=== PATIENT | female | born 1945 ===

== ENCOUNTER 2024-08-21 01:28 | Inpatient (IN) | payer OTHER, SELFPAY ==
--- NOTE | ~2024-08-21 | FL_ITS ---
EXAMINATION: MODIFIED BARIUM SWALLOW CLINICAL INFORMATION: Dysphagia COMPARISON: None TECHNIQUE: Modified barium swallow was performed under lateral fluoroscopy with patient in standing position. Barium mixed with solids and liquids of different consistencies was administered by the speech pathologist. Examination was recorded in the fluoroscopy suite. FINDINGS: Patient was unable to be positioned accordingly to visualize the hypopharynx, therefore, the procedure was terminated per request of the speech pathologist. FLUOROSCOPY TIME: 44 seconds Number of Spot Images: N/A DOSE AREA PRODUCT: 389.7 uGy-m2 (microgray-meter squared) FL/FL Modified Barium Swallow IMPRESSION: 1. Limited examination due to inability to visualize the hypopharynx. The procedure was terminated per request of the speech pathologist. Refer to the speech therapy report for further clarification This procedure was performed by Rusty Brennan PA-C, and supervised by Dr. Keane Electronically signed by: Jerry Keane MD 08/26/2024 08:36 AM [facility] [place]
[2024-08-21 02:02] VITALS: BP 143/69; PULSE 63; RESP 18; TEMP 36.6; O2SAT 92
--- NOTE | 2024-08-21 03:00 | PC.ADMIT ---
Addendum entered by Ebenezer Rios RN 08/21/24 03:18: incontinent of bowel and balder, and fall risk Original Note: patient is a hospital [place] hospital [place] [facility] [place] arrived on unit 08/21/24 at 0140 via stretcher and was transferred into bed. ambulance staff reported she was bed bound. patient has vague SI without a plan. Psych Diagnosis: Schizophrenia NOS, Bipolar NOS, Medical: Obesity, GERD, CKD, she had barricaded herself in her room at [facility], was aggressive, had SI, and was not medication compliant, on admission patient was resistive to admission process and responded with blank stair when asked to sign papers, she has a left side mastectomy, ,
[2024-08-21 08:00] VITALS: BP 140/76; PULSE 62; RESP 18; TEMP 36; O2SAT 94
--- NOTE | 2024-08-21 08:12 | P.HPPS_ITS ---
HPI Date of Service: 08/21/24 Chief Complaint: unspecified schizophrenia, bipolar disorder Sources of Information: patient interviewed, chart reviewed and crisis/core team assessment reviewed HPI Subjective Notes: Section 12B Narrative: 78-year-old female direct admission through [facility], where they were evaluated due to paranoia, aggression at [facility] in [place]. Paperwork from their has a diagnosis of schizophrenia. Noted from transfer information, patient had barricaded self in room, posturing towards staff, refusing medications, making suicidal statements and scratching herself. Lab work unremarkable, tox screen negative. QTC 465. refused to sign a CV and admitted on a Section 12. Today with short story writer, very minimal engagement. In bed. Hospital clothing. Self- care was poor. She was very guarded, paranoid and seemed internally preoccupied. Would not engage in interview. Later in the day as per nursing was out of bed and eating and also asked for Tylenol. Med reconciliation completed. Past Psychiatric History: per [facility] documentation, reported diagnosis of schizophrenia. Otherwise no information available and patient not engaging in interview Medical Evaluation Reviewed: Hospitalist Margaritaal Pending [facility] Social History: [facility] in [place] Substance History: unknown. Tox screen was negative Trauma History: unknown Diagnostics Vital Signs (24Hr): Vital Signs - 24 hr 08/21/24 02:02 Temperature 97.8 F Pulse Rate 63 Respiratory Rate 18 Blood Pressure 143/69 H Pulse Oximetry 92 Oxygen Delivery Method Room Air Meds/Allergies Meds Home Medications ?Medication ?Instructions ?Recorded ?Confirmed ?Type aluminum-mag hydroxide-simethicone 30 ml PO BID PRN GERD 08/21/24 08/21/24 History 200 mg-200 mg-20 mg/5 mL oral susp artificial tears solution eye drops 1 drp ophthalmic (eye) TID 08/21/24 08/21/24 History benztropine 0.5 mg tablet 0.5 mg PO BID DYSKINESIA 08/21/24 08/21/24 History bisacodyl 10 mg rectal suppository 10 mg [place] DAILY PRN Constipation 08/21/24 08/21/24 History cholecalciferol (vitamin D3) 25 25 mcg PO DAILY 08/21/24 08/21/24 History mcg (1,000 unit) tablet clopidogrel 75 mg tablet 75 mg PO DAILY 08/21/24 08/21/24 History cyclobenzaprine 5 mg tablet 5 mg PO TID PRN DYSTONIA 08/21/24 08/21/24 History deutetrabenazine 36 mg 36 mg PO BEDTIME 08/21/24 08/21/24 History tablet,extended release 24 hr dextromethorphan-guaifenesin 10 10 ml PO Q6H PRN Cough 08/21/24 08/21/24 History mg-100 mg/5 mL oral liquid divalproex 125 mg capsule,delayed 500 mg PO BID 08/21/24 08/21/24 History release sprinkle (Depakote Sprinkles) docusate sodium 100 mg capsule 100 mg PO BID 08/21/24 08/21/24 History ezetimibe 10 mg tablet 10 mg PO BEDTIME 08/21/24 08/21/24 History isosorbide mononitrate 60 mg 60 mg PO QAM 08/21/24 08/21/24 History tablet,extended release 24 hr lactulose 10 gram/15 mL oral 10 g PO BID PRN Constipation 08/21/24 08/21/24 History solution levothyroxine 112 mcg tablet 112 mcg PO DAILY@0630 08/21/24 08/21/24 History lorazepam 0.5 mg tablet 0.5 mg PO BID Anxiety 08/21/24 08/21/24 History lorazepam 0.5 mg tablet 0.5 mg PO Q6H PRN Anxiety 08/21/24 08/21/24 History magnesium hydroxide 400 mg/5 mL 30 ml PO DAILY PRN Constipation 08/21/24 08/21/24 History oral suspension (Milk of Magnesia) melatonin 3 mg tablet 6 mg PO BEDTIME 08/21/24 08/21/24 History nitroglycerin 0.4 mg sublingual 0.4 mg sublingual Q5M PRN Chest 08/21/24 08/21/24 History tablet Pain oxybutynin chloride 5 mg tablet 5 mg PO DAILY 08/21/24 08/21/24 History paliperidone palmitate 156 mg/mL 156 mg IM Q28D 08/21/24 08/21/24 History intramuscular syringe (Invega Sustenna) pantoprazole 40 mg granules 40 mg PO BEDTIME 08/21/24 08/21/24 History delayed-release for susp in packet polyethylene glycol 3350 17 gram 17 g PO DAILY 08/21/24 08/21/24 History oral powder packet (Miralax) pregabalin 75 mg capsule 75 mg PO BID 08/21/24 08/21/24 History sennosides 8.6 mg tablet (senna) 17.2 mg PO BEDTIME 08/21/24 08/21/24 History Allergies Allergies Allergy/AdvReac Type Severity Reaction Status Date / Time desonide Allergy Intermediate Unknown Verified 08/21/24 01:32 hydrocortisone Allergy Intermediate Unknown Verified 08/21/24 01:34 metoprolol Allergy Intermediate Unknown Verified 08/21/24 01:34 minocycline Allergy Intermediate Unknown Verified 08/21/24 01:35 niacin Allergy Intermediate Unknown Verified 08/21/24 01:35 NSAIDS (Non-Steroidal Allergy Intermediate Unknown Verified 08/21/24 01:33 Anti-Inflamma tetracycline Allergy Intermediate Unknown Verified 08/21/24 01:36 venlafaxine Allergy Intermediate Unknown Verified 08/21/24 01:36 latex Allergy Unknown Verified 08/21/24 01:37 gentamicin AdvReac Severe Unknown Verified 08/21/24 01:33 Mental Status Exam Mental Status Exam Narrative: Very minimal engagement. In bed. Hospital clothing. Self-care was poor. She was very guarded, paranoid and seemed internally preoccupied. Would not engage in interview. Assessment & Plan Assessment & Plan (1) Schizophrenia: Status: Acute Code(s): F20.9 - Schizophrenia, unspecified Plan 78-year-old female, direct admission from [facility], having been evaluated for paranoia, barricading self in room, posturing at staff, suicidal thoughts in the context of medication non adherence. Is a resident admission care [facility]. Paperwork there has a diagnosis of schizophrenia. Psychiatric history is unclear. Lab workup and tox screen unremarkable. Does appear very paranoid and internally preoccupied. Med reconciliation completed- Is on Depakote, Ativan and deutetrabenazine, but no scheduled antipsychotics. Overall will observe on unit, before making any decisions around and psychotic medication, Otherwise and restarted home for/ [facility] med list Patient educated on: other ( unable to engage) Informed Consent: further education needed Reason for continued inpatient stay Substantial Risk for: harm to others and inability to function Statement Statement: I have reviewed the history and physical and performed a pertinent examination on my patient. No changes have occurred unless specified. If the History and Physical was not performed prior to admission, the Hospitalist's service will be consulted for completing the admission ph ysical. Time Spent With Patient Time: Total time managing care of this patient today ____ minutes.
[2024-08-21 14:28] VITALS: BP 140/76
[2024-08-21] MEDS: Isosorbide Mononitrate 60 MG TAB.ER.24H PO (14:28)
[2024-08-21] MEDS: LORazepam 0.5 MG TABLET PO ×2 (14:28→20:15)
[2024-08-21] MEDS: polyethylene glycoL 3350 17 GM POWD.PACK PO (14:28)
[2024-08-21] MEDS: Cholecalciferol (Vitamin D3) 25 MCG TABLET PO (14:29)
[2024-08-21] MEDS: Docusate Sodium 100 MG CAPSULE PO ×2 (14:29→20:16)
[2024-08-21] MEDS: Divalproex Sodium Sprinkles 125 MG CAP.DR.SPR 500 MG PO ×2 (14:29→20:14)
[2024-08-21] MEDS: Clopidogrel Bisulfate 75 MG TABLET PO (14:30)
[2024-08-21] MEDS: Acetaminophen 325 MG TABLET 650 MG PO (14:40)
[2024-08-21] MEDS: Artificial Tears 15 ML DROPS 1 DROP EYE-BOTH ×2 (15:37→20:55)
[2024-08-21] MEDS: Pregabalin 75 MG CAPSULE PO ×2 (15:38→20:15)
[2024-08-21 20:00] VITALS: BP 104/60; PULSE 72; TEMP 36.8; O2SAT 96
[2024-08-21] MEDS: Sennosides 8.6 MG TABLET 17.2 MG PO (20:14)
[2024-08-21] MEDS: Melatonin 3 MG TABLET 6 MG PO (20:14)
[2024-08-21] MEDS: Ezetimibe 10 MG TABLET PO (20:15)
[2024-08-21] MEDS: Benztropine Mesylate 0.5 MG TABLET PO (20:15)
[2024-08-22] MEDS: Levothyroxine Sodium 112 MCG TABLET PO (05:37)
[2024-08-22] MEDS: Pantoprazole Sodium 20 MG TABLET.DR 40 MG PO (06:06)
[2024-08-22 09:32] VITALS: BP 130/79; PULSE 54; RESP 18; TEMP 36.6; O2SAT 95
[2024-08-22] MEDS: Divalproex Sodium Sprinkles 125 MG CAP.DR.SPR 500 MG PO (09:34)
[2024-08-22] MEDS: Artificial Tears 15 ML DROPS 1 DROP EYE-BOTH ×2 (09:34→15:02)
[2024-08-22] MEDS: Cholecalciferol (Vitamin D3) 25 MCG TABLET PO (09:35)
[2024-08-22] MEDS: Pregabalin 75 MG CAPSULE PO (09:36)
[2024-08-22] MEDS: Docusate Sodium 100 MG CAPSULE PO (09:36)
[2024-08-22] MEDS: LORazepam 0.5 MG TABLET PO (09:36)
[2024-08-22] MEDS: Isosorbide Mononitrate 60 MG TAB.ER.24H PO (09:36)
[2024-08-22] MEDS: Clopidogrel Bisulfate 75 MG TABLET PO (09:36)
[2024-08-22] MEDS: oxyBUTYnin chloride 5 MG TABLET G-TUBE (09:37)
[2024-08-22] MEDS: Benztropine Mesylate 0.5 MG TABLET PO (09:38)
[2024-08-22] MEDS: polyethylene glycoL 3350 17 GM POWD.PACK PO (09:38)
--- NOTE | 2024-08-22 11:03 | MHC.SL.SWA ---
Speech Pathologist Impression: Moderate to significant oral phase dysphagia d/t broken teeth, nasal regurgitation. Pharyngeal phase WFL for soft, homogenous consistencies. Risk of Aspiration Due to: Poor PO Intake Complex presentation of complaints regarding PO intake Dysphasia Diet Status: Liquid Consistency and Strategies for Safe Swallow: Liquid Intake Recommendation: Thin Liquid Intake Strategies: Small Sips Solid Food Consistency: Dietary Recommendations: Pureed (NDD1) Additional Modifications to Solid Foods: 1:1 supervision during PO intake, meds whole with cranberry juice Oral Medication Intake: Whole with Liquid Please contact the pharmacy regarding appropriate crushable or liquid drug formulations that are available whenever modified delivery is recommended. Compensatory Strategies and Precautions to be Taken for Safe Swallow: Sitting Upright (90 deg) Small Bites and Sips Alternate Liquids/Solids Rate of Ingestion Change Supervision While Eating and Drinking for Safe Swallow: Total Supervision (1:1) Foods to Avoid: Swallowing Recommended Treatments: Compens. Strategy Educat., MBSS inpatient to visualize physiological function of swallow mechanism. Recommendation for Speech: Inpatient Speech Therapy Modified Barium Swallow Study - Inpatient Comment: Recc smooth, homogenous consistencies (purees and thins), further assessment of oral and pharyngeal mechanism. Dental decay and broken teeth negatively impact oral phase efficiency. Pharyngeal swallow WFL as observed today, recc MBSS to visualize mechanism. Inpatient [facility] tx, referrals to ENT, Grinding And Spraying Supervisor, Dentist and [facility] considered necessary d/t pt reports of food regurgitation into nasal cavity/postnasal drip, pressure in the ears when eating, pain with chewing, and increased eye secretions s/p eating. Frequency/Duration: Daily M-F Date Range for Service Req: Timeline to reassess: Senior Auditor Clinican/Clinical Fellow: No Supervisory Statement: I have reviewed and agree with the student/clinical fellow's documentation: N/A Speech Language Pathologist: Clary Lopez M.S., CCC-[facility]
--- NOTE | 2024-08-22 11:13 | P.PNPSI_ITS ---
Subjective Subjective Date of Service: 08/22/24 Reason For Visit: unspecified schizophrenia, bipolar disorder Subjective Notes: Iverson Warning and Section 12B Interim History: Met with patient. Discussed with Nursing. And of her room yesterday and engaging more as per nursing staff. Eating okay. With sign writer hand was observed in day area attending group. Did appear guarded but was also engaging and participating. With sign writer hand reports at [facility] she has been feeling more depressed with suicidal thoughts but no plans. Reports that she is 78 years old and needs lots of help and therefore feels that she is at the end of her life and there is no point in living. Also reported feeling scared and paranoid. Was able to recall not speaking with sign writer hand yesterday and stated she was scared because it was a new environment. Denied inpatient psychiatric history. Was unsure around medications. Denied history of suicide attempts. Denies any history of hallucinations. No cognitive impairment evident. Was able to talk about the Super Bowl and half time show and reports that she prefers older music and artists, but of the newer generation she likes [employer]. sleep energy and appetite fair. Does endorse constipation which has been a longstanding is amaury. Was open to some changes being made regarding constipation but was also ambivalent. Medication Compliance: Yes Side effects from medications: No Attending Groups: Yes Review of Systems Acute medical concerns: No Review of Systems Review of Systems Constipation Mental Status Exam Mental Status Exam Narrative: Pleasant. Engaged. Hospital clothing. Self-care is still limited. No cognitive impairment noted. Aware of location month and day and year without difficulty. Articulated preference is around music and the Superbowl have time show. Does endorse feeling depressed with suicidal thoughts. No plans. Does endorse feeling scared and paranoid at times, but is adjusting to new envi ronment and feeling safe. No HI. No hallucinations. Insight and judgment fair Diagnostics Vital Signs (24Hr): Vital Signs - 24 hr 08/21/24 14:28 08/21/24 20:00 08/22/24 09:32 Temperature 98.2 F 97.8 F Pulse Rate 72 54 Respiratory Rate 18 Blood Pressure 140/76 H 104/60 130/79 Pulse Oximetry 96 95 Oxygen Delivery Method Room Air Room Air Medications Medications Current Medications Acetaminophen (Acetaminophen 325 Mg Tablet) 650 mg PO Q6H PRN PRN Reason: Headache/Pain Mild Scale (1-3) Last Admin: 08/21/24 14:40 Dose: 650 mg Al Hydroxide/Mg Hydroxide (Magnesium Hydrox/Alum Hydrox 30 Ml Oral.Susp) 30 ml PO BID PRN PRN Reason: GERD Artificial Tears (Artificial Tears 15 Ml Drops) 1 drop EYE-BOTH TID [facility] Last Admin: 08/22/24 09:34 Dose: 1 drop Benztropine Mesylate (Benztropine Mesylate 0.5 Mg Tablet) 0.5 mg PO BID [facility] Last Admin: 08/22/24 09:38 Dose: 0.5 mg Bisacodyl (Bisacodyl 10 Mg Supp.Rect) 10 mg [place] DAILY PRN PRN Reason: Mild Constipation Clopidogrel Bisulfate (Clopidogrel Bisulfate 75 Mg Tablet) 75 mg PO DAILY [facility] Last Admin: 08/22/24 09:36 Dose: 75 mg Cyclobenzaprine HCl (Cyclobenzaprine Hcl 5 Mg Tablet) 5 mg PO TID PRN PRN Reason: DYSTONIA Divalproex Sodium (Divalproex Sodium Sprinkles 125 Mg ) 500 mg PO BID [facility] Last Admin: 08/22/24 09:34 Dose: 500 mg Docusate Sodium (Docusate Sodium 100 Mg Capsule) 100 mg PO BID [facility] Last Admin: 08/22/24 09:36 Dose: 100 mg Ezetimibe (Ezetimibe 10 Mg Tablet) 10 mg PO BEDTIME [facility] Last Admin: 08/21/24 20:15 Dose: 10 mg Guaifenesin/Dextromethorphan (Guaifenesin Dm 100/10/5 Ml 5 Ml Syrup) 10 ml PO Q6H PRN PRN Reason: Cough Isosorbide Mononitrate (Isosorbide Mononitrate 60 Mg Tab.Er.24h) 60 mg PO DAILY [facility]; Protocol Last Admin: 08/22/24 09:36 Dose: 60 mg Lactulose (Lactulose 20 Gm/30 Ml Solution) 10 gm PO BID PRN PRN Reason: moderate Constipation Levothyroxine Sodium (Levothyroxine Sodium 112 Mcg Tablet) 112 mcg PO DAILY@0600 [facility] Last Admin: 08/22/24 05:37 Dose: 112 mcg Lorazepam (Lorazepam 0.5 Mg Tablet) 0.5 mg PO BID [facility] Last Admin: 08/22/24 09:36 Dose: 0.5 mg Lorazepam (Lorazepam 0.5 Mg Tablet) 0.5 mg PO Q6H PRN PRN Reason: Anxiety Magnesium Hydroxide (Milk Of Magnesia 30 Ml Oral.Susp) 30 ml PO DAILY PRN PRN Reason: Constipation Melatonin (Melatonin 3 Mg Tablet) 6 mg PO BEDTIME [facility] Last Admin: 08/21/24 20:14 Dose: 6 mg Nitroglycerin (Nitroglycerin 0.4 Mg Tab.Subl) 0.4 mg SUBLINGUAL Q5M PRN PRN Reason: Chest Pain Non-Formulary Medication (Deutetrabenazine) 36 mg PO BEDTIME [facility] Olanzapine (Olanzapine 5 Mg Tablet) 5 mg PO TID PRN PRN Reason: agitation Oxybutynin Chloride (Oxybutynin Chloride 5 Mg Tablet) 5 mg G-TUBE DAILY [facility] Last Admin: 08/22/24 09:37 Dose: 5 mg Pantoprazole Sodium (Pantoprazole Sodium 20 Mg Tablet.Dr) 40 mg PO DAILY@0630 [facility] Last Admin: 08/22/24 06:06 Dose: 40 mg Polyethylene Glycol (Polyethylene Glycol 3350 17 Gm Powd.Pack) 17 gm PO DAILY [facility] Last Admin: 08/22/24 09:38 Dose: 17 gm Pregabalin (Pregabalin 75 Mg Capsule) 75 mg PO BID [facility] Last Admin: 08/22/24 09:36 Dose: 75 mg Senna (Sennosides 8.6 Mg Tablet) 17.2 mg PO BEDTIME [facility] Last Admin: 08/21/24 20:14 Dose: 17.2 mg Trazodone HCl (Trazodone Hcl 25 Mg Halftab) 25 mg PO BEDTIME MRX1 PRN PRN Reason: Insomnia Vitamin D (Cholecalciferol (Vitamin D3) 25 Mcg Tablet) 25 mcg PO DAILY [facility] Last Admin: 08/22/24 09:35 Dose: 25 mcg Allergies Allergies Allergy/AdvReac Type Severity Reaction Status Date / Time desonide Allergy Intermediate Unknown Verified 08/21/24 01:32 hydrocortisone Allergy Intermediate Unknown Verified 08/21/24 01:34 metoprolol Allergy Intermediate Unknown Verified 08/21/24 01:34 minocycline Allergy Intermediate Unknown Verified 08/21/24 01:35 niacin Allergy Intermediate Unknown Verified 08/21/24 01:35 NSAIDS (Non-Steroidal Allergy Intermediate Unknown Verified 08/21/24 01:33 Anti-Inflamma tetracycline Allergy Intermediate Unknown Verified 08/21/24 01:36 venlafaxine Allergy Intermediate Unknown Verified 08/21/24 01:36 latex Allergy Unknown Verified 08/21/24 01:37 gentamicin AdvReac Severe Unknown Verified 08/21/24 01:33 Assessment & Plan Assessment & Plan (1) Schizophrenia: Status: Acute Code(s): F20.9 - Schizophrenia, unspecified Plan 78-year-old female, direct admission from [facility], having been evaluated for paranoia, barricading self in room, posturing at staff, suicidal thoughts in the context of medication non adherence. Is a resident admission care [facility]. Paperwork there has a diagnosis of schizophrenia. Psychiatric history is unclear. Lab workup and tox screen unremarkable. Does appear very paranoid and internally preoccupied. Med reconciliation completed- Is on Depakote, Ativan and deutetrabenazine, but no scheduled antipsychotics. Overall will observe on unit, before making any decisions around and psychotic medication, Otherwise and restarted home for/ [facility] med list 08/22/24: No med changes- restarted home medications, and there was report that patient was not adherent with medications at [facility]. Regarding constipation restarted Colace and senna. Reason for continued inpatient stay Substantial Risk for: harm to self Time Spent With Patient Time: Total time managing care of this patient today ____ minutes.
[2024-08-22 11:15] LABS: Glucose, Whole Blood 124 mg/dL (60-115)
--- NOTE | 2024-08-22 15:48 | P.CONHOSP_ITS ---
History of Present Illness Data of Consult Service Date: 08/22/24 Primary Care Provider: Unknown Physician HPI An 78-year-old female from [facility] with a past medical history significant for anxiety, bipolar disorder, borderline personality disorder, chronic kidney disease (CKD), drug-induced subacute dyskinesia, dry mouth, hypothyroidism, suicidal behavior, PTSD, COPD, dementia, dystonia, hyperlipidemia, insomnia, major depressive disorder, schizoaffective disorder, and a history of urinary tract infections (UTIs) [place] [facility] [place] for chronic sadness, increased agitation, and suicidal ideation. Reports also indicate episodes of the patient barricading herself in her room, decreased oral intake, aggressive posturing, and yelling/screaming. Her most recent psychiatric hospitalization was in June 2024. Given her presentation, she was admitted to [facility] for psychiatric management. Patient is seemingly doing better, seem to answer questions appropriately. She has no acute complaint, though she reports no urinary symptoms, a UA was collected on 08/21 and is growing Enterococcus/streptococcus, U[place] [facility] [place]. Review of Systems Review of Systems: Gen: no fever Resp: no sob, no cough CV: no chest, no CANO, no leg edema GI: No n/v, no abd pain Neuro: No confusion PMFSH Social History Household Members: Other Household Members Other:: patient [facility] at [facility] Housing: [facility] Do you presently have visiting nurse or other home services: No Patient Tobacco Use Status: Former Tobacco user Smoked in Last 30 Days: No e-Cigarette/Vaping Use: Never Used Patient Interested in Nicotine Replacement: No Patient Given Instructions on How to Stop Smoking: No Second Hand Smoke Exposure: No Use of substances other than those prescribed or required for medical reasons: No Currently Displaying Signs/Symptoms of Drug Intoxication Withdrawal: No Any prior treatment program specific to substance use: No Have you been hit, kicked, punched, or otherwise hurt by someone within the past year? If so, by whom?: No Do you feel safe in your current relationship?: No Current Relationship Is there a partner from a previous relationship who is making you feel unsafe now?: No Are you made to feel afraid or neglected: No Advance Directives: No Advance Directives Information Provided: Yes Do you have thoughts of harming others: None Do you have a plan to hurt others: No Plan Recently lost weight without trying: No Nutrition Risks: No Nutritional Risk Patient : No : No Poor oral hygiene: No Meds Allergies Allergy/AdvReac Type Severity Reaction Status Date / Time desonide Allergy Intermediate Unknown Verified 08/21/24 01:32 hydrocortisone Allergy Intermediate Unknown Verified 08/21/24 01:34 metoprolol Allergy Intermediate Unknown Verified 08/21/24 01:34 minocycline Allergy Intermediate Unknown Verified 08/21/24 01:35 niacin Allergy Intermediate Unknown Verified 08/21/24 01:35 NSAIDS (Non-Steroidal Allergy Intermediate Unknown Verified 08/21/24 01:33 Anti-Inflamma tetracycline Allergy Intermediate Unknown Verified 08/21/24 01:36 venlafaxine Allergy Intermediate Unknown Verified 08/21/24 01:36 latex Allergy Unknown Verified 08/21/24 01:37 gentamicin AdvReac Severe Unknown Verified 08/21/24 01:33 Active Medications: Current Medications Acetaminophen (Acetaminophen 325 Mg Tablet) 650 mg PO Q6H PRN PRN Reason: Headache/Pain Mild Scale (1-3) Last Admin: 08/21/24 14:40 Dose: 650 mg Al Hydroxide/Mg Hydroxide (Magnesium Hydrox/Alum Hydrox 30 Ml Oral.Susp) 30 ml PO BID PRN PRN Reason: GERD Artificial Tears (Artificial Tears 15 Ml Drops) 1 drop EYE-BOTH TID [facility] Last Admin: 08/22/24 15:02 Dose: 1 drop Benztropine Mesylate (Benztropine Mesylate 0.5 Mg Tablet) 0.5 mg PO BID [facility] Last Admin: 08/22/24 09:38 Dose: 0.5 mg Bisacodyl (Bisacodyl 10 Mg Supp.Rect) 10 mg [place] DAILY PRN PRN Reason: Mild Constipation Clopidogrel Bisulfate (Clopidogrel Bisulfate 75 Mg Tablet) 75 mg PO DAILY [facility] Last Admin: 08/22/24 09:36 Dose: 75 mg Cyclobenzaprine HCl (Cyclobenzaprine Hcl 5 Mg Tablet) 5 mg PO TID PRN PRN Reason: DYSTONIA Divalproex Sodium (Divalproex Sodium Sprinkles 125 Mg Cap.DrAltagraciaSpr) 500 mg PO BID [facility] Last Admin: 08/22/24 09:34 Dose: 500 mg Docusate Sodium (Docusate Sodium 100 Mg Capsule) 100 mg PO BID [facility] Last Admin: 08/22/24 09:36 Dose: 100 mg Ezetimibe (Ezetimibe 10 Mg Tablet) 10 mg PO BEDTIME [facility] Last Admin: 08/21/24 20:15 Dose: 10 mg Guaifenesin/Dextromethorphan (Guaifenesin Dm 100/10/5 Ml 5 Ml Syrup) 10 ml PO Q6H PRN PRN Reason: Cough Isosorbide Mononitrate (Isosorbide Mononitrate 60 Mg Tab.Er.24h) 60 mg PO DAILY [facility]; Protocol Last Admin: 08/22/24 09:36 Dose: 60 mg Lactulose (Lactulose 20 Gm/30 Ml Solution) 10 gm PO BID PRN PRN Reason: moderate Constipation Levothyroxine Sodium (Levothyroxine Sodium 112 Mcg Tablet) 112 mcg PO DAILY@0600 [facility] Last Admin: 08/22/24 05:37 Dose: 112 mcg Lorazepam (Lorazepam 0.5 Mg Tablet) 0.5 mg PO BID [facility] Last Admin: 08/22/24 09:36 Dose: 0.5 mg Lorazepam (Lorazepam 0.5 Mg Tablet) 0.5 mg PO Q6H PRN PRN Reason: Anxiety Magnesium Hydroxide (Milk Of Magnesia 30 Ml Oral.Susp) 30 ml PO DAILY PRN PRN Reason: Constipation Melatonin (Melatonin 3 Mg Tablet) 6 mg PO BEDTIME [facility] Last Admin: 08/21/24 20:14 Dose: 6 mg Nitroglycerin (Nitroglycerin 0.4 Mg Tab.Subl) 0.4 mg SUBLINGUAL Q5M PRN PRN Reason: Chest Pain Non-Formulary Medication (Deutetrabenazine) 36 mg PO BEDTIME [facility] Olanzapine (Olanzapine 5 Mg Tablet) 5 mg PO TID PRN PRN Reason: agitation Oxybutynin Chloride (Oxybutynin Chloride 5 Mg Tablet) 5 mg G-TUBE DAILY [facility] Last Admin: 08/22/24 09:37 Dose: 5 mg Pantoprazole Sodium (Pantoprazole Sodium 20 Mg Tablet.Dr) 40 mg PO DAILY@0630 [facility] Last Admin: 08/22/24 06:06 Dose: 40 mg Polyethylene Glycol (Polyethylene Glycol 3350 17 Gm Powd.Pack) 17 gm PO DAILY [facility] Last Admin: 08/22/24 09:38 Dose: 17 gm Pregabalin (Pregabalin 75 Mg Capsule) 75 mg PO BID [facility] Last Admin: 08/22/24 09:36 Dose: 75 mg Senna (Sennosides 8.6 Mg Tablet) 17.2 mg PO BEDTIME [facility] Last Admin: 08/21/24 20:14 Dose: 17.2 mg Trazodone HCl (Trazodone Hcl 25 Mg Halftab) 25 mg PO BEDTIME MRX1 PRN PRN Reason: Insomnia Vitamin D (Cholecalciferol (Vitamin D3) 25 Mcg Tablet) 25 mcg PO DAILY [facility] Last Admin: 08/22/24 09:35 Dose: 25 mcg Home Medications ?Medication ?Instructions ?Recorded ?Confirmed ?Last Taken ?Type aluminum-mag hydroxide-simethicone 30 ml PO BID PRN GERD 08/21/24 08/21/24 Unknown History 200 mg-200 mg-20 mg/5 mL oral susp artificial tears solution eye drops 1 drp ophthalmic (eye) TID 08/21/24 08/21/24 Unknown History benztropine 0.5 mg tablet 0.5 mg PO BID DYSKINESIA 08/21/24 08/21/24 Unknown History bisacodyl 10 mg rectal suppository 10 mg HI DAILY PRN Constipation 08/21/24 08/21/24 Unknown History cholecalciferol (vitamin D3) 25 25 mcg PO DAILY 08/21/24 08/21/24 Unknown History mcg (1,000 unit) tablet clopidogrel 75 mg tablet 75 mg PO DAILY 08/21/24 08/21/24 Unknown History cyclobenzaprine 5 mg tablet 5 mg PO TID PRN DYSTONIA 08/21/24 08/21/24 Unknown H istory deutetrabenazine 36 mg 36 mg PO BEDTIME 08/21/24 08/21/24 Unknown History tablet,extended release 24 hr dextromethorphan-guaifenesin 10 10 ml PO Q6H PRN Cough 08/21/24 08/21/24 Unknown History mg-100 mg/5 mL oral liquid divalproex 125 mg capsule,delayed 500 mg PO BID 08/21/24 08/21/24 Unknown History release sprinkle (Depakote Sprinkles) docusate sodium 100 mg capsule 100 mg PO BID 08/21/24 08/21/24 Unknown History ezetimibe 10 mg tablet 10 mg PO BEDTIME 08/21/24 08/21/24 Unknown History isosorbide mononitrate 60 mg 60 mg PO QAM 08/21/24 08/21/24 Unknown History tablet,extended release 24 hr lactulose 10 gram/15 mL oral 10 g PO BID PRN Constipation 08/21/24 08/21/24 Unknown History solution levothyroxine 112 mcg tablet 112 mcg PO DAILY@0630 08/21/24 08/21/24 Unknown History lorazepam 0.5 mg tablet 0.5 mg PO BID Anxiety 08/21/24 08/21/24 Unknown History lorazepam 0.5 mg tablet 0.5 mg PO Q6H PRN Anxiety 08/21/24 08/21/24 Unknown History magnesium hydroxide 400 mg/5 mL 30 ml PO DAILY PRN Constipation 08/21/24 08/21/24 Unknown History oral suspension (Milk of Magnesia) melatonin 3 mg tablet 6 mg PO BEDTIME 08/21/24 08/21/24 Unknown History nitroglycerin 0.4 mg sublingual 0.4 mg sublingual Q5M PRN Chest 08/21/24 08/21/24 Unknown History tablet Pain oxybutynin chloride 5 mg tablet 5 mg PO DAILY 08/21/24 08/21/24 Unknown History paliperidone palmitate 156 mg/mL 156 mg IM Q28D 08/21/24 08/21/24 Unknown History intramuscular syringe (Invega Sustenna) pantoprazole 40 mg granules 40 mg PO BEDTIME 08/21/24 08/21/24 Unknown History delayed-release for susp in packet polyethylene glycol 3350 17 gram 17 g PO DAILY 08/21/24 08/21/24 Unknown History oral powder packet (Miralax) pregabalin 75 mg capsule 75 mg PO BID 08/21/24 08/21/24 Unknown History sennosides 8.6 mg tablet (senna) 17.2 mg PO BEDTIME 08/21/24 08/21/24 Unknown History Physical Exam Vital Signs and Narrative: Vital Signs: Last Vital Signs Temp 97.8 F 08/22/24 09:32 Pulse 54 08/22/24 09:32 Resp 18 08/22/24 09:32 BP 130/79 08/22/24 09:32 Pulse Ox 95 08/22/24 09:32 O2 Del Method Room Air 08/22/24 09:32 Const: Other: General: AO X 3, no acute distress Resp: CTA bilateral CVS: S1,S2,RRR GI: +BS, NT, no distention Skin: No rash Neuro: motor grossly intact, CN2 to 12 intact Psych: appropriate affect Results Labs Labs: Laboratory Results - last 24 hr 08/22/24 11:03 POC Glucose 124 H Assessment and Plan (1) UTI (urinary tract infection): Status: Acute (2) Schizophrenia: Status: Acute Plan An 78-year-old female from [facility] with a past medical history significant for anxiety, bipolar disorder, borderline personality disorder, chronic kidney disease (CKD), drug-induced subacute dyskinesia, dry mouth, hypothyroidism, suicidal behavior, PTSD, COPD, dementia, dystonia, hyperlipidemia, insomnia, major depressive disorder, schizoaffective disorder, and a history of urinary tract infections (UTIs) presented to [facility] under Section 12 for chronic sadness, increased agitation, and suicidal ideation. PMH: s/p pacemaker, HTN, HLD, hypothyroidism Plan: continue Psychiatric care for schizoaffective d/o, bipolar continue levothyroxine for hypothyroidis continue zetia for HLD Start amoxicillin for UTI and follow culture Indication for Plavix not clear at this time, but suspect CAD, along with Mdur, continue for now constipation, bowel regimen
--- NOTE | 2024-08-22 16:17 | PC.NURSE ---
Hospitalist Dr. Parada visited with the patient today. He will review the urine results and treat if he feels it is necessary since she had a negative urine 2 days ago at [facility].
[2024-08-22] MEDS: Amoxicillin 500 MG CAPSULE PO (17:01)
--- NOTE | 2024-08-22 17:23 | PC.NURSE ---
Copy of patient's HCP received from [facility] today via fax. Patient's sister Traci called and updated about UTI, [place] and upcoming MBS. Phone number should be [phone].
[2024-08-22 20:00] VITALS: BP 113/78; PULSE 83; RESP 18; TEMP 36.4; O2SAT 96
[2024-08-23] MEDS: LORazepam 0.5 MG TABLET PO ×3 (03:30→21:08)
[2024-08-23] MEDS: Pantoprazole Sodium 20 MG TABLET.DR 40 MG PO (06:19)
[2024-08-23] MEDS: Levothyroxine Sodium 112 MCG TABLET PO (06:19)
[2024-08-23] MEDS: Amoxicillin 500 MG CAPSULE PO (06:19)
[2024-08-23 08:40] VITALS: BP 150/79; PULSE 62; RESP 16; TEMP 36.4; O2SAT 93
[2024-08-23] MEDS: Artificial Tears 15 ML DROPS 1 DROP EYE-BOTH ×3 (09:30→22:13)
[2024-08-23] MEDS: Divalproex Sodium Sprinkles 125 MG CAP.DR.SPR 500 MG PO ×2 (09:30→21:09)
[2024-08-23] MEDS: Isosorbide Mononitrate 60 MG TAB.ER.24H PO (09:32)
[2024-08-23] MEDS: Docusate Sodium 100 MG CAPSULE PO ×2 (09:32→21:12)
[2024-08-23] MEDS: Cholecalciferol (Vitamin D3) 25 MCG TABLET PO (09:33)
[2024-08-23] MEDS: Pregabalin 75 MG CAPSULE PO ×2 (09:33→21:09)
[2024-08-23] MEDS: oxyBUTYnin chloride 5 MG TABLET PO (09:34)
[2024-08-23] MEDS: Clopidogrel Bisulfate 75 MG TABLET PO (09:34)
[2024-08-23] MEDS: Benztropine Mesylate 0.5 MG TABLET PO ×2 (09:35→21:11)
--- NOTE | 2024-08-23 10:07 | PC.NURSE ---
I called [facility] regarding the Flu vaccine and she had gotten it there on 04/07/24 per their staff.
--- NOTE | 2024-08-23 10:27 | MHC.SLORD ---
Speech Language Pathology Order Status: RN and GUILLOTINE OPERATOR consulted, pt going for MBSS this afternoon. Visit made to pt to provide education and review protocol for MBSS, pt in agreement, expressed appreciation for assessment.
--- NOTE | 2024-08-23 11:04 | HO.PSYCHPN ---
Subjective Subjective Date of Service: 08/23/24 Reason For Visit: unspecified schizophrenia, bipolar disorder Medical Problems Affecting Mental Status: Yes (uti) Interim History: Met with pt discussed with the team. Pt with current UTI-amoxicillin rx. Brighter in the evenings with sx of paranoia consistently Scheduled for mbs today, currently on puree. Pt assisted out of bed with team. She is alert, attentive to activity in her environment. She will respond in delayed response however is mostly observant and without much dialogue. She does appear with paranoia at times. Medication Compliance: Yes Side effects from medications: No Attending Groups: Intermittent Review of Systems uti Medical Review of Systems: unchanged Review of Systems Review of Systems uti Mental Status Exam Mental Status Exam Patient Appearance: Appropriate Patient Orientation: Person Level of Consciousness: Alert Patient Behavior: Good Eye Contact Mood Description: Anxious Affect Description: Anxious Ability to Follow Directions: Good Speech Pattern: Impoverished, Soft-Spoken and Delayed Judgement: Fair Diagnostics Vital Signs (24Hr): Vital Signs - 24 hr 08/22/24 20:00 08/23/24 08:40 Temperature 97.6 F 97.5 F Pulse Rate 83 62 Respiratory Rate 18 16 Blood Pressure 113/78 150/79 H Pulse Oximetry 96 93 Oxygen Delivery Method Room Air Room Air Labs Labs: Laboratory Results - last 48 hr 08/22/24 11:03 POC Glucose 124 H Medications Medications Current Medications Acetaminophen (Acetaminophen 325 Mg Tablet) 650 mg PO Q6H PRN PRN Reason: Headache/Pain Mild Scale (1-3) Last Admin: 08/21/24 14:40 Dose: 650 mg Al Hydroxide/Mg Hydroxide (Magnesium Hydrox/Alum Hydrox 30 Ml Oral.Susp) 30 ml PO BID PRN PRN Reason: GERD Amoxicillin (Amoxicillin Oral Susp 400 Mg/5 Ml 75 Ml Susp.Recon) 500 mg PO Q12H [facility] Artificial Tears (Artificial Tears 15 Ml Drops) 1 drop EYE-BOTH TID [facility] Last Admin: 08/23/24 09:30 Dose: 1 drop Benztropine Mesylate (Benztropine Mesylate 0.5 Mg Tablet) 0.5 mg PO BID [facility] Last Admin: 08/23/24 09:35 Dose: 0.5 mg Bisacodyl (Bisacodyl 10 Mg Supp.Rect) 10 mg [place] DAILY PRN PRN Reason: Mild Constipation Clopidogrel Bisulfate (Clopidogrel Bisulfate 75 Mg Tablet) 75 mg PO DAILY [facility] Last Admin: 08/23/24 09:34 Dose: 75 mg Cyclobenzaprine HCl (Cyclobenzaprine Hcl 5 Mg Tablet) 5 mg PO TID PRN PRN Reason: DYSTONIA Divalproex Sodium (Divalproex Sodium Sprinkles 125 Mg Paulino.) 500 mg PO BID [facility] Last Admin: 08/23/24 09:30 Dose: 500 mg Docusate Sodium (Docusate Sodium 100 Mg Capsule) 100 mg PO BID [facility] Last Admin: 08/23/24 09:32 Dose: 100 mg Ezetimibe (Ezetimibe 10 Mg Tablet) 10 mg PO BEDTIME [facility] Last Admin: 08/22/24 21:46 Dose: Not Given Guaifenesin/Dextromethorphan (Guaifenesin Dm 100/10/5 Ml 5 Ml Syrup) 10 ml PO Q6H PRN PRN Reason: Cough Isosorbide Mononitrate (Isosorbide Mononitrate 60 Mg Tab.Er.24h) 60 mg PO DAILY [facility]; Protocol Last Admin: 08/23/24 09:32 Dose: 60 mg Lactulose (Lactulose 20 Gm/30 Ml Solution) 10 gm PO BID PRN PRN Reason: moderate Constipation Levothyroxine Sodium (Levothyroxine Sodium 112 Mcg Tablet) 112 mcg PO DAILY@0600 [facility] Last Admin: 08/23/24 06:19 Dose: 112 mcg Lorazepam (Lorazepam 0.5 Mg Tablet) 0.5 mg PO BID [facility] Last Admin: 08/23/24 09:33 Dose: 0.5 mg Lorazepam (Lorazepam 0.5 Mg Tablet) 0.5 mg PO Q6H PRN PRN Reason: Anxiety Last Admin: 08/23/24 03:30 Dose: 0.5 mg Magnesium Hydroxide (Milk Of Magnesia 30 Ml Oral.Susp) 30 ml PO DAILY PRN PRN Reason: Constipation Melatonin (Melatonin 3 Mg Tablet) 6 mg PO BEDTIME [facility] Last Admin: 08/22/24 21:46 Dose: Not Given Nitroglycerin (Nitroglycerin 0.4 Mg Tab.Subl) 0.4 mg SUBLINGUAL Q5M PRN PRN Reason: Chest Pain Non-Formulary Medication (Deutetrabenazine) 36 mg PO BEDTIME [facility] Olanzapine (Olanzapine 5 Mg Tablet) 5 mg PO TID PRN PRN Reason: agitation Oxybutynin Chloride (Oxybutynin Chloride 5 Mg Tablet) 5 mg PO DAILY [facility] Last Admin: 08/23/24 09:34 Dose: 5 mg Pantoprazole Sodium (Pantoprazole Sodium 20 Mg Tablet.Dr) 40 mg PO DAILY@0630 [facility] Last Admin: 08/23/24 06:19 Dose: 40 mg Phenazopyridine HCl (Phenazopyridine Hcl 100 Mg Tablet) 100 mg PO TIDWM PRN PRN Reason: uti sx Stop: 08/25/24 10:50 Polyethylene Glycol (Polyethylene Glycol 3350 17 Gm Powd.Pack) 17 gm PO DAILY [facility] Last Admin: 08/23/24 10:50 Dose: Not Given Polyethylene Glycol (Polyethylene Glycol 3350 17 Gm Powd.Pack) 17 gm PO DAILY PRN PRN Reason: Constipation Pregabalin (Pregabalin 75 Mg Capsule) 75 mg PO BID [facility] Last Admin: 08/23/24 09:33 Dose: 75 mg Senna (Sennosides 8.6 Mg Tablet) 17.2 mg PO BEDTIME [facility] Last Admin: 08/22/24 21:46 Dose: Not Given Trazodone HCl (Trazodone Hcl 25 Mg Halftab) 25 mg PO BEDTIME MRX1 PRN PRN Reason: Insomnia Vitamin D (Cholecalciferol (Vitamin D3) 25 Mcg Tablet) 25 mcg PO DAILY [facility] Last Admin: 08/23/24 09:33 Dose: 25 mcg Allergies Allergies Allergy/AdvReac Type Severity Reaction Status Date / Time desonide Allergy Intermediate Unknown Verified 08/21/24 01:32 hydrocortisone Allergy Intermediate Unknown Verified 08/21/24 01:34 metoprolol Allergy Intermediate Unknown Verified 08/21/24 01:34 minocycline Allergy Intermediate Unknown Verified 08/21/24 01:35 niacin Allergy Intermediate Unknown Verified 08/21/24 01:35 NSAIDS (Non-Steroidal Allergy Intermediate Unknown Verified 08/21/24 01:33 Anti-Inflamma tetracycline Allergy Intermediate Unknown Verified 08/21/24 01:36 venlafaxine Allergy Intermediate Unknown Verified 08/21/24 01:36 latex Allergy Unknown Verified 08/21/24 01:37 gentamicin AdvReac Severe Unknown Verified 08/21/24 01:33 Assessment & Plan Assessment & Plan (1) UTI (urinary tract infection): Status: Acute Code(s): N39.0 - Urinary tract infection, site not specified (2) Schizophrenia: Status: Acute Code(s): F20.9 - Schizophrenia, unspecified Plan An 78-year-old female from [facility] with a past medical history significant for anxiety, bipolar disorder, borderline personality disorder, chronic kidney disease (CKD), drug-induced subacute dyskinesia, dry mouth, hypothyroidism, suicidal behavior, PTSD, COPD, dementia, dystonia, hyperlipidemia, insomnia, major depressive disorder, schizoaffective disorder, and a history of urinary tract infections (UTIs) presented to [facility] under [facility] 12 for chronic sadness, increased agitation, and suicidal ideation. PMH: s/p pacemaker, HTN, HLD, hypothyroidism Plan: continue Psychiatric care for schizoaffective d/o, bipolar continue levothyroxine for hypothyroidis continue zetia for HLD Start amoxicillin for UTI and follow culture Indication for Plavix not clear at this time, but suspect CAD, along with Mdur, continue for now constipation, bowel regimen 08/23/24- mbs today continue uti rx and follow culture further rx as uti resolves Reason for continued inpatient stay Substantial Risk for: med/psych decompensation Time Spent With Patient Time: Total time managing care of this patient today ____ minutes.
[2024-08-23] MEDS: polyethylene glycoL 3350 17 GM POWD.PACK PO (16:59)
--- NOTE | 2024-08-23 18:09 | PC.NURSE ---
Line of intact blisters found on patients left upper inner thigh right at incontinence pad line during PM care. Barrier cream applied.
[2024-08-23 21:05] VITALS: BP 113/66; PULSE 63; RESP 20; TEMP 36.6; O2SAT 99
[2024-08-23] MEDS: Ezetimibe 10 MG TABLET PO (21:09)
[2024-08-23] MEDS: Melatonin 3 MG TABLET 6 MG PO (21:12)
[2024-08-23] MEDS: Sennosides 8.6 MG TABLET 17.2 MG PO (21:13)
[2024-08-23] MEDS: Amoxicillin Oral Susp 400 mg/5 mL 75 mL SUSP.RECON 500 MG PO (22:26)
[2024-08-24] MEDS: Pantoprazole Sodium 20 MG TABLET.DR 40 MG PO (06:04)
[2024-08-24] MEDS: Levothyroxine Sodium 112 MCG TABLET PO (06:05)
[2024-08-24] MEDS: Amoxicillin Oral Susp 400 mg/5 mL 75 mL SUSP.RECON 500 MG PO ×2 (06:12→17:38)
[2024-08-24 08:08] LABS: Estimated Average Glucose 100 mg/dL; Hemoglobin A1C 115.4146 umol/L; Hemoglobin A1c % 5.1 % (<6.0); Total Hemoglobin (HGBA1C) 3563.0173 umol/L
[2024-08-24 08:15] VITALS: BP 129/68; PULSE 68; RESP 20; TEMP 36.4; O2SAT 95
[2024-08-24 08:17] LABS: Alanine Aminotransferase 11 U/L (0-31); Albumin Level 3.6 g/dL (3.5-5.0); Alkaline Phosphatase 59 U/L (39-117); Anion Gap 12 (12-20); Aspartate Amino Transferase 13 U/L (5-31); Bilirubin Total 0.4 mg/dL (0.0-1.0); Blood Urea Nitrogen 23 mg/dL (9-16); Calcium 10.1 mg/dL (8.4-10.2); Carbon Dioxide 27 mmol/L (22-29); Chloride 107 mmol/L (96-108); Cholesterol 184 mg/dL (<200); Estimated Glomerular Filt Rate > 60; Glucose Random 91 mg/dL (60-115); HDL Cholesterol 38 mg/dL (>40); LDL Cholesterol Calculated 118 mg/dL (<100); Sodium 142 mmol/L (135-145); Total Protein 6.9 g/dL (6.5-8.0); Triglycerides 143 mg/dL (<150)
[2024-08-24 08:31] LABS: TSH reflex Free T4 0.49 uIU/mL (0.32-4.0)
[2024-08-24 08:46] LABS: Folate 6.1 ng/mL (> or = 4.0); Vitamin B12 781 pg/mL (200-900)
[2024-08-24] MEDS: Isosorbide Mononitrate 60 MG TAB.ER.24H PO (09:08)
[2024-08-24] MEDS: Divalproex Sodium Sprinkles 125 MG CAP.DR.SPR 500 MG PO ×2 (09:10→21:05)
[2024-08-24] MEDS: oxyBUTYnin chloride 5 MG TABLET PO (09:12)
[2024-08-24] MEDS: Benztropine Mesylate 0.5 MG TABLET PO ×2 (09:12→21:05)
[2024-08-24] MEDS: Cholecalciferol (Vitamin D3) 25 MCG TABLET PO (09:13)
[2024-08-24] MEDS: LORazepam 0.5 MG TABLET PO ×2 (09:13→21:05)
[2024-08-24] MEDS: Docusate Sodium 100 MG CAPSULE PO ×2 (09:14→21:05)
[2024-08-24] MEDS: Pregabalin 75 MG CAPSULE PO ×2 (09:14→21:05)
[2024-08-24] MEDS: Clopidogrel Bisulfate 75 MG TABLET PO (09:14)
[2024-08-24] MEDS: polyethylene glycoL 3350 17 GM POWD.PACK PO (09:18)
[2024-08-24] MEDS: Artificial Tears 15 ML DROPS 1 DROP EYE-BOTH ×3 (09:20→21:04)
--- NOTE | 2024-08-24 11:30 | HO.PSYCHPN ---
Subjective Subjective Date of Service: 08/24/24 Reason For Visit: unspecified schizophrenia, bipolar disorder Subjective Notes: Conditional Voluntary Interim History: The nursing staff reported the location her diagnosis of bipolar depression, borderline personality disorder and dementia. The patient had been compliant with treatment. On interview the patient reports that she is dysphoric, she agreed on continuing treatment. Mental Status Exam Mental Status Exam Patient Appearance: Appropriate Patient Orientation: Person and Situation Level of Consciousness: Awake and Appropriate Patient Behavior: Guarded Mood Description: Withdrawn Affect Description: Constricted Patient Cognition Impaired: Yes Ability to Follow Directions: Good Speech Pattern: Clear Hallucinations: None Delusions: Ideas of Reference Thought Process: Distracted and Slowed Thinking Thought Content: positive for [place] and positive for Poverty of Content Judgement: Fair Diagnostics Vital Signs (24Hr): Vital Signs - 24 hr 08/23/24 21:05 08/24/24 08:15 Temperature 97.8 F 97.5 F Pulse Rate 63 68 Respiratory Rate 20 20 Blood Pressure 113/66 129/68 Pulse Oximetry 99 95 Oxygen Delivery Method Room Air Room Air Labs 08/24/24 07:48 Labs: Laboratory Results - last 48 hr 08/24/24 07:48 Sodium 142 Potassium 4.0 Chloride 107 Carbon Dioxide 27 Anion Gap 12 BUN 23 H Creatinine 0.82 Estim Creat Clear Calc 60.0 Estimated GFR > 60 Random Glucose 91 Estimat Average Glucose 100 Hemoglobin A1c % 5.1 Calcium 10.1 Total Bilirubin 0.4 AST 13 ALT 11 Alkaline Phosphatase 59 Total Protein 6.9 Albumin 3.6 Triglycerides 143 Cholesterol 184 LDL Cholesterol, Calc 118 H HDL Cholesterol 38 L Vitamin B12 781 Folate 6.1 TSH 0.49 Medications Medications Current Medications Acetaminophen (Acetaminophen 325 Mg Tablet) 650 mg PO Q6H PRN PRN Reason: Headache/Pain Mild Scale (1-3) Last Admin: 08/21/24 14:40 Dose: 650 mg Al Hydroxide/Mg Hydroxide (Magnesium Hydrox/Alum Hydrox 30 Ml Oral.Susp) 30 ml PO BID PRN PRN Reason: GERD Amoxicillin (Amoxicillin Oral Susp 400 Mg/5 Ml 75 Ml Susp.Recon) 500 mg PO 0600,1800 [facility] Last Admin: 08/24/24 06:12 Dose: 500 mg Artificial Tears (Artificial Tears 15 Ml Drops) 1 drop EYE-BOTH TID [facility] Last Admin: 08/24/24 09:20 Dose: 1 drop Benztropine Mesylate (Benztropine Mesylate 0.5 Mg Tablet) 0.5 mg PO BID [facility] Last Admin: 08/24/24 09:12 Dose: 0.5 mg Bisacodyl (Bisacodyl 10 Mg Supp.Rect) 10 mg SD DAILY PRN PRN Reason: Mild Constipation Clopidogrel Bisulfate (Clopidogrel Bisulfate 75 Mg Tablet) 75 mg PO DAILY [facility] Last Admin: 08/24/24 09:14 Dose: 75 mg Cyclobenzaprine HCl (Cyclobenzaprine Hcl 5 Mg Tablet) 5 mg PO TID PRN PRN Reason: DYSTONIA Divalproex Sodium (Divalproex Sodium Sprinkles 125 Mg Cap.) 500 mg PO BID [facility] Last Admin: 08/24/24 09:10 Dose: 500 mg Docusate Sodium (Docusate Sodium 100 Mg Capsule) 100 mg PO BID [facility] Last Admin: 08/24/24 09:14 Dose: 100 mg Ezetimibe (Ezetimibe 10 Mg Tablet) 10 mg PO BEDTIME [facility] Last Admin: 08/23/24 21:09 Dose: 10 mg Guaifenesin/Dextromethorphan (Guaifenesin Dm 100/10/5 Ml 5 Ml Syrup) 10 ml PO Q6H PRN PRN Reason: Cough Isosorbide Mononitrate (Isosorbide Mononitrate 60 Mg Tab.Er.24h) 60 mg PO DAILY [facility]; Protocol Last Admin: 08/24/24 09:08 Dose: 60 mg Lactulose (Lactulose 20 Gm/30 Ml Solution) 10 gm PO BID PRN PRN Reason: moderate Constipation Levothyroxine Sodium (Levothyroxine Sodium 112 Mcg Tablet) 112 mcg PO DAILY@0600 [facility] Last Admin: 08/24/24 06:05 Dose: 112 mcg Lorazepam (Lorazepam 0.5 Mg Tablet) 0.5 mg PO BID [facility] Last Admin: 08/24/24 09:13 Dose: 0.5 mg Lorazepam (Lorazepam 0.5 Mg Tablet) 0.5 mg PO Q6H PRN PRN Reason: Anxiety Last Admin: 08/23/24 03:30 Dose: 0.5 mg Magnesium Hydroxide (Milk Of Magnesia 30 Ml Oral.Susp) 30 ml PO DAILY PRN PRN Reason: Constipation Melatonin (Melatonin 3 Mg Tablet) 6 mg PO BEDTIME [facility] Last Admin: 08/23/24 21:12 Dose: 6 mg Nitroglycerin (Nitroglycerin 0.4 Mg Tab.Subl) 0.4 mg SUBLINGUAL Q5M PRN PRN Reason: Chest Pain Non-Formulary Medication (Deutetrabenazine) 36 mg PO BEDTIME [facility] Olanzapine (Olanzapine 5 Mg Tablet) 5 mg PO TID PRN PRN Reason: agitation Oxybutynin Chloride (Oxybutynin Chloride 5 Mg Tablet) 5 mg PO DAILY [facility] Last Admin: 08/24/24 09:12 Dose: 5 mg Pantoprazole Sodium (Pantoprazole Sodium 20 Mg Tablet.Dr) 40 mg PO DAILY@0630 [facility] Last Admin: 08/24/24 06:04 Dose: 40 mg Phenazopyridine HCl (Phenazopyridine Hcl 100 Mg Tablet) 100 mg PO TIDWM PRN PRN Reason: uti sx Stop: 08/25/24 10:50 Polyethylene Glycol (Polyethylene Glycol 3350 17 Gm Powd.Pack) 17 gm PO DAILY [facility] Last Admin: 08/24/24 09:18 Dose: 17 gm Polyethylene Glycol (Polyethylene Glycol 3350 17 Gm Powd.Pack) 17 gm PO DAILY PRN PRN Reason: Constipation Pregabalin (Pregabalin 75 Mg Capsule) 75 mg PO BID [facility] Last Admin: 08/24/24 09:14 Dose: 75 mg Senna (Sennosides 8.6 Mg Tablet) 17.2 mg PO BEDTIME [facility] Last Admin: 08/23/24 21:13 Dose: 17.2 mg Trazodone HCl (Trazodone Hcl 25 Mg Halftab) 25 mg PO BEDTIME MRX1 PRN PRN Reason: Insomnia Vitamin D (Cholecalciferol (Vitamin D3) 25 Mcg Tablet) 25 mcg PO DAILY [facility] Last Admin: 08/24/24 09:13 Dose: 25 mcg Allergies Allergies Allergy/AdvReac Type Severity Reaction Status Date / Time desonide Allergy Intermediate Unknown Verified 08/21/24 01:32 hydrocortisone Allergy Intermediate Unknown Verified 08/21/24 01:34 metoprolol Allergy Intermediate Unknown Verified 08/21/24 01:34 minocycline Allergy Intermediate Unknown Verified 08/21/24 01:35 niacin Allergy Intermediate Unknown Verified 08/21/24 01:35 NSAIDS (Non-Steroidal Allergy Intermediate Unknown Verified 08/21/24 01:33 Anti-Inflamma tetracycline Allergy Intermediate Unknown Verified 08/21/24 01:36 venlafaxine Allergy Intermediate Unknown Verified 08/21/24 01:36 latex Allergy Unknown Verified 08/21/24 01:37 gentamicin AdvReac Severe Unknown Verified 08/21/24 01:33 Assessment & Plan Assessment & Plan (1) UTI (urinary tract infection): Status: Acute Code(s): N39.0 - Urinary tract infection, site not specified (2) Schizophrenia: Status: Acute Code(s): F20.9 - Schizophrenia, unspecified Plan An 78-year-old female from [facility] [place] with a past medical history significant for anxiety, bipolar disorder, borderline personality disorder, chronic kidney disease (CKD), drug-induced subacute dyskinesia, dry mouth, hypothyroidism, suicidal behavior, PTSD, COPD, dementia, dystonia, hyperlipidemia, insomnia, major depressive disorder, schizoaffective disorder, and a history of urinary tract infections (UTIs) presented to [facility] under Section 12 for chronic sadness, increased agitation, and suicidal ideation. PMH: s/p pacemaker, HTN, HLD, hypothyroidism Plan: continue Psychiatric care for schizoaffective d/o, bipolar continue levothyroxine for hypothyroidis continue zetia for HLD Start amoxicillin for UTI and follow culture Indication for Plavix not clear at this time, but suspect CAD, along with Mdur, continue for now constipation, bowel regimen 08/23/24- mbs today continue uti rx and follow culture further rx as uti resolves 08/24 keep same treatment Reason for continued inpatient stay Substantial Risk for: inability to function, rapid decompensation and med/psych decompensation Time Spent With Patient Time: Total time managing care of this patient today __20__ minutes.
--- NOTE | 2024-08-24 14:51 | MHC.SLORD ---
Addendum entered and electronically signed by Yasmeen Doyle MA, CCC-RUG DYER HELPER 08/24/24 15:02: RUG DYER HELPER called and spoke w/ nursing staff at [facility]- Patient was reportedly on a mechanically soft diet and thin liquids prior to this hospitalization. RUG DYER HELPER recommended downgrade to puree (NDD1) 08/22. Original Note: Speech Language Pathology Order Status: Attempted MBSS this afternoon. Patient minimally responsive to environment and not responding to most questions. Patient did follow some basic commands for oromotor examination. Patient presents with reduced lingual ROM, generalized weakness, adequate dentition for mastication. Patient was seated in lateral view and administered trace thin barium and puree mixture. Unable to visualize larynx as view was obstructed by patient's shoulders, patient having difficulty holding chin up despite multiple attempts at repositioning. Exam discontinued. Notified MD via Gary Message.
[2024-08-24 20:00] VITALS: BP 129/62; PULSE 82; RESP 17; TEMP 37.5; O2SAT 95
[2024-08-24] MEDS: Ezetimibe 10 MG TABLET PO (21:05)
[2024-08-24] MEDS: Melatonin 3 MG TABLET 6 MG PO (21:05)
[2024-08-24] MEDS: Sennosides 8.6 MG TABLET 17.2 MG PO (21:05)
[2024-08-25] MEDS: Levothyroxine Sodium 112 MCG TABLET PO (05:33)
[2024-08-25] MEDS: Amoxicillin Oral Susp 400 mg/5 mL 75 mL SUSP.RECON 500 MG PO ×2 (05:33→18:46)
[2024-08-25] MEDS: Pantoprazole Sodium 20 MG TABLET.DR 40 MG PO (05:33)
[2024-08-25] MEDS: Clopidogrel Bisulfate 75 MG TABLET PO (08:41)
[2024-08-25] MEDS: oxyBUTYnin chloride 5 MG TABLET PO (08:41)
[2024-08-25] MEDS: Cholecalciferol (Vitamin D3) 25 MCG TABLET PO (08:41)
[2024-08-25] MEDS: Isosorbide Mononitrate 60 MG TAB.ER.24H PO (08:41)
[2024-08-25] MEDS: LORazepam 0.5 MG TABLET PO ×2 (08:42→21:21)
[2024-08-25] MEDS: Docusate Sodium 100 MG CAPSULE PO ×2 (08:42→21:20)
[2024-08-25] MEDS: Divalproex Sodium Sprinkles 125 MG CAP.DR.SPR 500 MG PO ×2 (08:42→21:20)
[2024-08-25] MEDS: polyethylene glycoL 3350 17 GM POWD.PACK PO (08:42)
[2024-08-25] MEDS: Artificial Tears 15 ML DROPS 1 DROP EYE-BOTH ×2 (08:42→16:05)
[2024-08-25] MEDS: Pregabalin 75 MG CAPSULE PO ×2 (08:42→21:20)
[2024-08-25] MEDS: Benztropine Mesylate 0.5 MG TABLET PO ×2 (08:42→21:20)
[2024-08-25 08:52] VITALS: BP 114/56; PULSE 58; RESP 16; TEMP 36.4; O2SAT 979
--- NOTE | 2024-08-25 13:52 | HO.PSYCHPN ---
Subjective Subjective Date of Service: 08/25/24 Reason For Visit: unspecified schizophrenia, bipolar disorder Subjective Notes: Conditional Voluntary Interim History: The nursing staff reported the patient had been very withdrawn cooperative with poor appetite on amoxicillin for UTI she slept well last night. On interview the patient is pleasantly confused. We gather collateral information and according to admission care she received her Invega Sustenna shot on August 18 then they were asking if we can increase to the maximum dose. Mental Status Exam Mental Status Exam Patient Appearance: Appropriate Patient Orientation: Person Level of Consciousness: Awake Patient Behavior: Guarded and Passive Mood Description: Withdrawn Affect Description: Blunted Patient Cognition Impaired: Yes Ability to Follow Directions: Good Speech Pattern: Clear Hallucinations: Auditory Delusions: Paranoid Ideation and Ideas of Reference Thought Process: Distracted and Slowed Thinking Thought Content: positive for [place] and positive for Poverty of Content Judgement: Fair Diagnostics Vital Signs (24Hr): Vital Signs - 24 hr 08/24/24 20:00 08/25/24 08:52 Temperature 99.5 F 97.6 F Pulse Rate 82 58 Respiratory Rate 17 16 Blood Pressure 129/62 114/56 L Pulse Oximetry 95 979 H Oxygen Delivery Method Room Air Labs 08/24/24 07:48 Labs: Laboratory Results - last 48 hr 08/24/24 07:48 Sodium 142 Potassium 4.0 Chloride 107 Carbon Dioxide 27 Anion Gap 12 BUN 23 H Creatinine 0.82 Estim Creat Clear Calc 60.0 Estimated GFR > 60 Random Glucose 91 Estimat Average Glucose 100 Hemoglobin A1c % 5.1 Calcium 10.1 Total Bilirubin 0.4 AST 13 ALT 11 Alkaline Phosphatase 59 Total Protein 6.9 Albumin 3.6 Triglycerides 143 Cholesterol 184 LDL Cholesterol, Calc 118 H HDL Cholesterol 38 L Vitamin B12 781 Folate 6.1 TSH 0.49 Medications Medications Current Medications Acetaminophen (Acetaminophen 325 Mg Tablet) 650 mg PO Q6H PRN PRN Reason: Headache/Pain Mild Scale (1-3) Last Admin: 08/21/24 14:40 Dose: 650 mg Al Hydroxide/Mg Hydroxide (Magnesium Hydrox/Alum Hydrox 30 Ml Oral.Susp) 30 ml PO BID PRN PRN Reason: GERD Amoxicillin (Amoxicillin Oral Susp 400 Mg/5 Ml 75 Ml Susp.Recon) 500 mg PO 0600,1800 [facility] Last Admin: 08/25/24 05:33 Dose: 500 mg Artificial Tears (Artificial Tears 15 Ml Drops) 1 drop EYE-BOTH TID [facility] Last Admin: 08/25/24 08:42 Dose: 1 drop Benztropine Mesylate (Benztropine Mesylate 0.5 Mg Tablet) 0.5 mg PO BID [facility] Last Admin: 08/25/24 08:42 Dose: 0.5 mg Bisacodyl (Bisacodyl 10 Mg Supp.Rect) 10 mg NE DAILY PRN PRN Reason: Mild Constipation Clopidogrel Bisulfate (Clopidogrel Bisulfate 75 Mg Tablet) 75 mg PO DAILY [facility] Last Admin: 08/25/24 08:41 Dose: 75 mg Cyclobenzaprine HCl (Cyclobenzaprine Hcl 5 Mg Tablet) 5 mg PO TID PRN PRN Reason: DYSTONIA Divalproex Sodium (Divalproex Sodium Sprinkles 125 Mg Cap.DrAltagraciaSpr) 500 mg PO BID [facility] Last Admin: 08/25/24 08:42 Dose: 500 mg Docusate Sodium (Docusate Sodium 100 Mg Capsule) 100 mg PO BID [facility] Last Admin: 08/25/24 08:42 Dose: 100 mg Ezetimibe (Ezetimibe 10 Mg Tablet) 10 mg PO BEDTIME [facility] Last Admin: 08/24/24 21:05 Dose: 10 mg Guaifenesin/Dextromethorphan (Guaifenesin Dm 100/10/5 Ml 5 Ml Syrup) 10 ml PO Q6H PRN PRN Reason: Cough Isosorbide Mononitrate (Isosorbide Mononitrate 60 Mg Tab.Er.24h) 60 mg PO DAILY [facility]; Protocol Last Admin: 08/25/24 08:41 Dose: 60 mg Lactulose (Lactulose 20 Gm/30 Ml Solution) 10 gm PO BID PRN PRN Reason: moderate Constipation Levothyroxine Sodium (Levothyroxine Sodium 112 Mcg Tablet) 112 mcg PO DAILY@0600 [facility] Last Admin: 08/25/24 05:33 Dose: 112 mcg Lorazepam (Lorazepam 0.5 Mg Tablet) 0.5 mg PO BID [facility] Last Admin: 08/25/24 08:42 Dose: 0.5 mg Lorazepam (Lorazepam 0.5 Mg Tablet) 0.5 mg PO Q6H PRN PRN Reason: Anxiety Last Admin: 08/23/24 03:30 Dose: 0.5 mg Magnesium Hydroxide (Milk Of Magnesia 30 Ml Oral.Susp) 30 ml PO DAILY PRN PRN Reason: Constipation Melatonin (Melatonin 3 Mg Tablet) 6 mg PO BEDTIME [facility] Last Admin: 08/24/24 21:05 Dose: 6 mg Nitroglycerin (Nitroglycerin 0.4 Mg Tab.Subl) 0.4 mg SUBLINGUAL Q5M PRN PRN Reason: Chest Pain Non-Formulary Medication (Deutetrabenazine) 36 mg PO BEDTIME [facility] Olanzapine (Olanzapine 5 Mg Tablet) 5 mg PO TID PRN PRN Reason: agitation Oxybutynin Chloride (Oxybutynin Chloride 5 Mg Tablet) 5 mg PO DAILY [facility] Last Admin: 08/25/24 08:41 Dose: 5 mg Pantoprazole Sodium (Pantoprazole Sodium 20 Mg Tablet.Dr) 40 mg PO DAILY@0630 [facility] Last Admin: 08/25/24 05:33 Dose: 40 mg Polyethylene Glycol (Polyethylene Glycol 3350 17 Gm Powd.Pack) 17 gm PO DAILY [facility] Last Admin: 08/25/24 08:42 Dose: 17 gm Polyethylene Glycol (Polyethylene Glycol 3350 17 Gm Powd.Pack) 17 gm PO DAILY PRN PRN Reason: Constipation Pregabalin (Pregabalin 75 Mg Capsule) 75 mg PO BID [facility] Last Admin: 08/25/24 08:42 Dose: 75 mg Senna (Sennosides 8.6 Mg Tablet) 17.2 mg PO BEDTIME [facility] Last Admin: 08/24/24 21:05 Dose: 17.2 mg Trazodone HCl (Trazodone Hcl 25 Mg Halftab) 25 mg PO BEDTIME MRX1 PRN PRN Reason: Insomnia Vitamin D (Cholecalciferol (Vitamin D3) 25 Mcg Tablet) 25 mcg PO DAILY [facility] Last Admin: 08/25/24 08:41 Dose: 25 mcg Allergies Allergies Allergy/AdvReac Type Severity Reaction Status Date / Time desonide Allergy Intermediate Unknown Verified 08/21/24 01:32 hydrocortisone Allergy Intermediate Unknown Verified 08/21/24 01:34 metoprolol Allergy Intermediate Unknown Verified 08/21/24 01:34 minocycline Allergy Intermediate Unknown Verified 08/21/24 01:35 niacin Allergy Intermediate Unknown Verified 08/21/24 01:35 NSAIDS (Non-Steroidal Allergy Intermediate Unknown Verified 08/21/24 01:33 Anti-Inflamma tetracycline Allergy Intermediate Unknown Verified 08/21/24 01:36 venlafaxine Allergy Intermediate Unknown Verified 08/21/24 01:36 latex Allergy Unknown Verified 08/21/24 01:37 gentamicin AdvReac Severe Unknown Verified 08/21/24 01:33 Assessment & Plan Assessment & Plan (1) UTI (urinary tract infection): Status: Acute Code(s): N39.0 - Urinary tract infection, site not specified (2) Schizophrenia: Status: Acute Code(s): F20.9 - Schizophrenia, unspecified Plan An 78-year-old female from [facility] [place] with a past medical history significant for anxiety, bipolar disorder, borderline personality disorder, chronic kidney disease (CKD), drug-induced subacute dyskinesia, dry mouth, hypothyroidism, suicidal behavior, PTSD, COPD, dementia, dystonia, hyperlipidemia, insomnia, major depressive disorder, schizoaffective disorder, and a history of urinary tract infections (UTIs) presented to [facility] [facility] under Section 12 for chronic sadness, increased agitation, and suicidal ideation. PMH: s/p pacemaker, HTN, HLD, hypothyroidism Plan: continue Psychiatric care for schizoaffective d/o, bipolar continue levothyroxine for hypothyroidis continue zetia for HLD Start amoxicillin for UTI and follow culture Indication for Plavix not clear at this time, but suspect CAD, along with Mdur, continue for now constipation, bowel regimen Plan 1. Gather collateral information. 2. According to admission care, she had Invega Sustenna shot on August 18. There asking to increase to the maximum dose to 234 mg. 3. Continue with medical workout and treatment for UTI. Reason for continued inpatient stay Substantial Risk for: inability to function, rapid decompensation and med/psych decompensation Time Spent With Patient Time: Total time managing care of this patient today __20__ minutes.
--- NOTE | 2024-08-25 14:55 | MHC.SL.SWA ---
Speech Pathologist Impression: Moderate oral phase dysphagia, mild pharyngeal phase dysphagia Risk of Aspiration Due to: Poor PO Intake Missing/broken dentition Reduced cognition Pre-existing dysphagia Dysphasia Diet Status: Liquid Consistency and Strategies for Safe Swallow: Liquid Intake Recommendation: Thin Liquid Intake Strategies: Small Sips Solid Food Consistency: Dietary Recommendations: Pureed (NDD1) Additional Modifications to Solid Foods: 1:1 supervision during PO intake, pt states she takes meds whole with cranberry, MULTIPLE PRESSURE RIVETER OPERATOR recc option of meds in puree Oral Medication Intake: Whole with Puree Please contact the pharmacy regarding appropriate crushable or liquid drug formulations that are available whenever modified delivery is recommended. Compensatory Strategies and Precautions to be Taken for Safe Swallow: Sitting Upright (90 deg) Small Bites and Sips Alternate Liquids/Solids Rate of Ingestion Change Supervision While Eating and Drinking for Safe Swallow: Total Supervision (1:1) Foods to Avoid: Solids that require pt to masticate and form bolus d/t poor oral phase efficiency; which elevates pt risk for choking. Smooth, homogenous consistencies are SAFEST at this time. Swallowing Recommended Treatments: Compens. Strategy Educat. Recommendation for Speech: Inpatient Speech Therapy Modified Barium Swallow Study - Inpatient Comment: MBSS attempted in order to visualize physiological function of swallow mechanism, pt unable to fully participate, results inconclusive. MULTIPLE PRESSURE RIVETER OPERATOR continues to follow. Frequency/Duration: Daily M-F Date Range for Service Req: Timeline to reassess: Stock Checkerer Clinican/Clinical Fellow: No Supervisory Statement: I have reviewed and agree with the student/clinical fellow's documentation: N/A Speech Language Pathologist: Clary Lopez M.S., CCC-MULTIPLE PRESSURE RIVETER OPERATOR
[2024-08-25 20:00] VITALS: BP 99/57; PULSE 61; RESP 18; TEMP 36.6; O2SAT 96
[2024-08-25] MEDS: Melatonin 3 MG TABLET 6 MG PO (21:20)
[2024-08-25] MEDS: Sennosides 8.6 MG TABLET 17.2 MG PO (21:20)
[2024-08-25] MEDS: Ezetimibe 10 MG TABLET PO (21:20)
[2024-08-26] MEDS: Amoxicillin Oral Susp 400 mg/5 mL 75 mL SUSP.RECON 500 MG PO ×2 (06:52→18:06)
[2024-08-26] MEDS: polyethylene glycoL 3350 17 GM POWD.PACK PO (06:52)
[2024-08-26] MEDS: Acetaminophen 325 MG TABLET 650 MG PO (06:52)
[2024-08-26] MEDS: Levothyroxine Sodium 112 MCG TABLET PO (06:53)
[2024-08-26] MEDS: Pantoprazole Sodium 20 MG TABLET.DR 40 MG PO (06:53)
[2024-08-26 10:02] VITALS: BP 141/85; PULSE 71; RESP 20; TEMP 36.4; O2SAT 96
[2024-08-26] MEDS: Isosorbide Mononitrate 60 MG TAB.ER.24H PO (10:04)
[2024-08-26] MEDS: Clopidogrel Bisulfate 75 MG TABLET PO (10:04)
[2024-08-26] MEDS: Benztropine Mesylate 0.5 MG TABLET PO ×2 (10:04→21:11)
[2024-08-26] MEDS: Cholecalciferol (Vitamin D3) 25 MCG TABLET PO (10:05)
[2024-08-26] MEDS: Pregabalin 75 MG CAPSULE PO ×2 (10:05→21:11)
[2024-08-26] MEDS: LORazepam 0.5 MG TABLET PO ×2 (10:05→21:10)
[2024-08-26] MEDS: Docusate Sodium 100 MG CAPSULE PO ×2 (10:06→21:10)
[2024-08-26] MEDS: oxyBUTYnin chloride 5 MG TABLET PO (10:06)
[2024-08-26] MEDS: Divalproex Sodium Sprinkles 125 MG CAP.DR.SPR 500 MG PO ×2 (10:13→21:08)
[2024-08-26] MEDS: Artificial Tears 15 ML DROPS 1 DROP EYE-BOTH ×2 (10:22→21:07)
--- NOTE | 2024-08-26 10:49 | P.PNPSI_ITS ---
Subjective Subjective Date of Service: 08/26/24 Reason For Visit: unspecified schizophrenia, bipolar disorder Subjective Notes: Conditional Voluntary Interim History: The nursing staff reported the patient had been medication compliant she looks more lucid since UTI had been treated. She is now with a pureed diet as per speech and swallow therapist. She had a barium test that came back inconclusive. On interview the patient reports pain in her groin and urinary frequency increased. She is aware that she is having a UTI and she is still taking antibiotics. I am ordering blood work for tomorrow with a UA Mental Status Exam Mental Status Exam Patient Appearance: Appropriate Patient Orientation: Person and Situation Level of Consciousness: Awake and Appropriate Patient Behavior: Guarded and Passive Mood Description: Withdrawn Affect Description: Constricted Patient Cognition Impaired: Yes Ability to Follow Directions: Good Speech Pattern: Clear Hallucinations: None Delusions: Ideas of Reference Thought Process: Distracted and Slowed Thinking Thought Content: positive for [place] and positive for Poverty of Content Judgement: Fair Diagnostics Vital Signs (24Hr): Vital Signs - 24 hr 08/25/24 20:00 08/26/24 10:02 Temperature 97.9 F 97.5 F Pulse Rate 61 71 Respiratory Rate 18 20 Blood Pressure 99/57 L 141/85 H Pulse Oximetry 96 96 Oxygen Delivery Method Room Air Room Air Labs 08/24/24 07:48 Imaging Radiology Impressions: ITS Impressions Modified Barium Swallow 08/24/24 14:20 IMPRESSION: 1. Limited examination due to inability to visualize the hypopharynx. The procedure was terminated per request of the speech pathologist. Refer to the speech therapy report for further clarification This procedure was performed by Rusty Brennan PA-C, and supervised by Dr. Keane Electronically signed by: Jerry Keane MD 08/26/2024 08:36 AM [facility] Medications Medications Current Medications Acetaminophen (Acetaminophen 325 Mg Tablet) 650 mg PO Q6H PRN PRN Reason: Headache/Pain Mild Scale (1-3) Last Admin: 08/26/24 06:52 Dose: 650 mg Al Hydroxide/Mg Hydroxide (Magnesium Hydrox/Alum Hydrox 30 Ml Oral.Susp) 30 ml PO BID PRN PRN Reason: GERD Amoxicillin (Amoxicillin Oral Susp 400 Mg/5 Ml 75 Ml Susp.Recon) 500 mg PO 0600,1800 [facility] Last Admin: 08/26/24 06:52 Dose: 500 mg Artificial Tears (Artificial Tears 15 Ml Drops) 1 drop EYE-BOTH TID [facility] Last Admin: 08/26/24 10:22 Dose: 1 drop Benztropine Mesylate (Benztropine Mesylate 0.5 Mg Tablet) 0.5 mg PO BID [facility] Last Admin: 08/26/24 10:04 Dose: 0.5 mg Bisacodyl (Bisacodyl 10 Mg Supp.Rect) 10 mg AL DAILY PRN PRN Reason: Mild Constipation Clopidogrel Bisulfate (Clopidogrel Bisulfate 75 Mg Tablet) 75 mg PO DAILY [facility] Last Admin: 08/26/24 10:04 Dose: 75 mg Cyclobenzaprine HCl (Cyclobenzaprine Hcl 5 Mg Tablet) 5 mg PO TID PRN PRN Reason: DYSTONIA Divalproex Sodium (Divalproex Sodium Sprinkles 125 Mg Cap.Spr) 500 mg PO BID [facility] Last Admin: 08/26/24 10:13 Dose: 500 mg Docusate Sodium (Docusate Sodium 100 Mg Capsule) 100 mg PO BID [facility] Last Admin: 08/26/24 10:06 Dose: 100 mg Ezetimibe (Ezetimibe 10 Mg Tablet) 10 mg PO BEDTIME [facility] Last Admin: 08/25/24 21:20 Dose: 10 mg Guaifenesin/Dextromethorphan (Guaifenesin Dm 100/10/5 Ml 5 Ml Syrup) 10 ml PO Q6H PRN PRN Reason: Cough Isosorbide Mononitrate (Isosorbide Mononitrate 60 Mg Tab.Er.24h) 60 mg PO DAILY [facility]; Protocol Last Admin: 08/26/24 10:04 Dose: 60 mg Lactulose (Lactulose 20 Gm/30 Ml Solution) 10 gm PO BID PRN PRN Reason: moderate Constipation Levothyroxine Sodium (Levothyroxine Sodium 112 Mcg Tablet) 112 mcg PO DAILY@0600 [facility] Last Admin: 08/26/24 06:53 Dose: 112 mcg Lorazepam (Lorazepam 0.5 Mg Tablet) 0.5 mg PO BID [facility] Last Admin: 08/26/24 10:05 Dose: 0.5 mg Lorazepam (Lorazepam 0.5 Mg Tablet) 0.5 mg PO Q6H PRN PRN Reason: Anxiety Last Admin: 08/23/24 03:30 Dose: 0.5 mg Magnesium Hydroxide (Milk Of Magnesia 30 Ml Oral.Susp) 30 ml PO DAILY PRN PRN Reason: Constipation Melatonin (Melatonin 3 Mg Tablet) 6 mg PO BEDTIME [facility] Last Admin: 08/25/24 21:20 Dose: 6 mg Nitroglycerin (Nitroglycerin 0.4 Mg Tab.Subl) 0.4 mg SUBLINGUAL Q5M PRN PRN Reason: Chest Pain Non-Formulary Medication (Deutetrabenazine) 36 mg PO BEDTIME [facility] Olanzapine (Olanzapine 5 Mg Tablet) 5 mg PO TID PRN PRN Reason: agitation Oxybutynin Chloride (Oxybutynin Chloride 5 Mg Tablet) 5 mg PO DAILY [facility] Last Admin: 08/26/24 10:06 Dose: 5 mg Pantoprazole Sodium (Pantoprazole Sodium 20 Mg Tablet.Dr) 40 mg PO DAILY@0630 [facility] Last Admin: 08/26/24 06:53 Dose: 40 mg Polyethylene Glycol (Polyethylene Glycol 3350 17 Gm Powd.Pack) 17 gm PO DAILY [facility] Last Admin: 08/26/24 10:24 Dose: Not Given Polyethylene Glycol (Polyethylene Glycol 3350 17 Gm Powd.Pack) 17 gm PO DAILY PRN PRN Reason: Constipation Last Admin: 08/26/24 06:52 Dose: 17 gm Pregabalin (Pregabalin 75 Mg Capsule) 75 mg PO BID [facility] Last Admin: 08/26/24 10:05 Dose: 75 mg Senna (Sennosides 8.6 Mg Tablet) 17.2 mg PO BEDTIME [facility] Last Admin: 08/25/24 21:20 Dose: 17.2 mg Trazodone HCl (Trazodone Hcl 25 Mg Halftab) 25 mg PO BEDTIME MRX1 PRN PRN Reason: Insomnia Vitamin D (Cholecalciferol (Vitamin D3) 25 Mcg Tablet) 25 mcg PO DAILY [facility] Last Admin: 08/26/24 10:05 Dose: 25 mcg Allergies Allergies Allergy/AdvReac Type Severity Reaction Status Date / Time desonide Allergy Intermediate Unknown Verified 08/21/24 01:32 hydrocortisone Allergy Intermediate Unknown Verified 08/21/24 01:34 metoprolol Allergy Intermediate Unknown Verified 08/21/24 01:34 minocycline Allergy Intermediate Unknown Verified 08/21/24 01:35 niacin Allergy Intermediate Unknown Verified 08/21/24 01:35 NSAIDS (Non-Steroidal Allergy Intermediate Unknown Verified 08/21/24 01:33 Anti-Inflamma tetracycline Allergy Intermediate Unknown Verified 08/21/24 01:36 venlafaxine Allergy Intermediate Unknown Verified 08/21/24 01:36 latex Allergy Unknown Verified 08/21/24 01:37 gentamicin AdvReac Severe Unknown Verified 08/21/24 01:33 Assessment & Plan Assessment & Plan (1) UTI (urinary tract infection): Status: Acute Code(s): N39.0 - Urinary tract infection, site not specified (2) Schizophrenia: Status: Acute Code(s): F20.9 - Schizophrenia, unspecified Plan An 78-year-old female from [facility] [place] with a past medical history significant for anxiety, bipolar disorder, borderline personality disorder, chronic kidney disease (CKD), drug-induced subacute dyskinesia, dry mouth, hypothyroidism, suicidal behavior, PTSD, COPD, dementia, dystonia, hyperlipidemia, insomnia, major depressive disorder, schizoaffective disorder, and a history of urinary tract infections (UTIs) presented to [facility] under Section 12 for chronic sadness, increased agitation, and suicidal ideation. PMH: s/p pacemaker, HTN, HLD, hypothyroidism Plan: continue Psychiatric care for schizoaffective d/o, bipolar continue levothyroxine for hypothyroidis continue zetia for HLD Start amoxicillin for UTI and follow culture Indication for Plavix not clear at this time, but suspect CAD, along with Mdur, continue for now constipation, bowel regimen Plan 1. Gather collateral information. 2. According to admission care, she had Invega Sustenna shot on August 18. There asking to increase to the maximum dose to 234 mg. 3. Continue with medical workout and treatment for UTI. 4. CBC with differential, basic metabolic panel and UA for August 27. Reason for continued inpatient stay Substantial Risk for: inability to function, rapid decompensation and med/psych decompensation Time Spent With Patient Time: Total time managing care of this patient today __20__ minutes.
[2024-08-26 20:00] VITALS: BP 135/62; PULSE 66; RESP 16; TEMP 36.6; O2SAT 96
[2024-08-26] MEDS: Melatonin 3 MG TABLET 6 MG PO (21:10)
[2024-08-26] MEDS: Ezetimibe 10 MG TABLET PO (21:12)
[2024-08-26] MEDS: Sennosides 8.6 MG TABLET 17.2 MG PO (21:12)
[2024-08-27] MEDS: Levothyroxine Sodium 112 MCG TABLET PO (06:40)
[2024-08-27] MEDS: Pantoprazole Sodium 20 MG TABLET.DR 40 MG PO (06:40)
[2024-08-27] MEDS: Amoxicillin Oral Susp 400 mg/5 mL 75 mL SUSP.RECON 500 MG PO ×2 (06:41→18:47)
[2024-08-27] MEDS: polyethylene glycoL 3350 17 GM POWD.PACK PO (06:41)
[2024-08-27 07:48] LABS: MANUAL DIFF FLAG NO
[2024-08-27 07:55] LABS: Basophils Percent Auto 0.8 % (0-2); Eosinophils Absolute Auto 0.2 X10*3/uL (0.0-0.4); Imm Gran Abs Auto 0.01 X10*3/uL (0.00-0.03); Imm Gran Pct Auto 0.2 % (0.0-0.4); Lymphocytes Absolute Auto 1.7 X10*3/uL (1.2-4.9); Lymphocytes Percent Auto 32.4 % (20-40); Mean Corpuscular HGB Conc 33.3 g/dl (31.0-35.0); Mean Corpuscular Hemoglobin 31.5 pg (27.0-33.0); Mean Corpuscular Volume 94.4 fL (80.0-98.0); Mean Platelet Volume 10.7 fL (9.4-12.3); Monocytes Absolute Auto 0.8 X10*3/uL (0.1-1.2); Monocytes Percent Auto 14.8 % (2-11); Neutrophils Absolute Auto 2.5 x10*3/uL (2.0-8.3); Neutrophils Percent Auto 47.8 % (45-73); Platelet Count 237 X10*3/uL (160-400); Red Blood Count 4.13 X10*6/uL (4.20-5.50); Red Cell Distribution Width 13.2 % (11.0-16.0); White Blood Count 5.2 X10*3/uL (4.8-10.8)
[2024-08-27 08:00] VITALS: BP 121/65; PULSE 69; RESP 18; TEMP 36; O2SAT 91
[2024-08-27 08:03] LABS: Anion Gap 11 (12-20); Blood Urea Nitrogen 16 mg/dL (9-16); Calcium 10.4 mg/dL (8.4-10.2); Carbon Dioxide 29 mmol/L (22-29); Chloride 107 mmol/L (96-108); Creatinine Clr Calc Pharmacy 59.3; Estimated Glomerular Filt Rate > 60; Glucose Random 89 mg/dL (60-115); Potassium 4.3 mmol/L (3.3-5.1); Sodium 143 mmol/L (135-145)
--- NOTE | 2024-08-27 12:12 | MHC.SL.SWA ---
Speech Pathologist Impression: Risk of Aspiration Due to: Poor PO Intake Dysphasia Diet Status: Recommend upgrade solids to Ground Mechanical Altered (NDD2) continue on thin liquids, pills whole in liquid. Liquid Consistency and Strategies for Safe Swallow: Liquid Intake Recommendation: Thin Liquid Intake Strategies: Small Sips Solid Food Consistency: Dietary Recommendations: Grnd/Mech Altered (NDD2) Additional Modifications to Solid Foods: 1:1 supervision during PO intake, meds whole with cranberry juice Oral Medication Intake: Whole with Puree Please contact the pharmacy regarding appropriate crushable or liquid drug formulations that are available whenever modified delivery is recommended. Compensatory Strategies and Precautions to be Taken for Safe Swallow: Sitting Upright (90 deg) Liquids from Cup Liquids from Straw Small Bites and Sips Alternate Liquids/Solids Supervision While Eating and Drinking for Safe Swallow: Intermittent Supervision Foods to Avoid: Difficult to chew solids, mixed consistencies. Swallowing Recommended Treatments: Compens. Strategy Educat. Recommendation for Speech: Inpatient Speech Therapy Modified Barium Swallow Study - Inpatient Comment: Patient seen at lunch today. Upon arrival to the patient's table in the group dining area, patient had just grabbed the dessert puree with her hand and threw it on the table. She stopped by the TILE ERECTOR and aided with cleaning up her hand and the table, but her lunch tray was then removed. The TILE ERECTOR reported that the patient wants real food and is upset with her current diet of puree. EVENT CREW TECHNICIAN then offered patient trial of katt crackers crushed in puree, which patient accepted. Patient stripped spoon well, produced an evident rotary chew and a timely swallow. When queried if it hurt her teeth (as previously reported in chart) she replied it get's stuck and then reached for a cup with juice to clear any remaining cracker from her mouth. Patient took several more trials of this consistency, producing a timely swallow and self initiating taking sips after bites of food. Patient was told that she would move up a level to ground food, however she again expressed some displeasure at this recommendation. However, patient is appropriate for a diet upgrade at this time: Recommend upgrade solids to Ground Mechanical Altered (NDD2) continue on thin liquids, pills whole in puree. EVENT CREW TECHNICIAN made adjustment in chandan, RN informed. Frequency/Duration: Daily M-F Date Range for Service Req: Timeline to reassess: Internal Combustion Engine Assembler Clinican/Clinical Fellow: No Supervisory Statement: I have reviewed and agree with the student/clinical fellow's documentation: N/A Speech Language Pathologist: Amaris Matthew M.A., [facility]-EVENT CREW TECHNICIAN
--- NOTE | 2024-08-27 13:19 | HO.PSYCHPN ---
Subjective Subjective Date of Service: 08/27/24 Reason For Visit: unspecified schizophrenia, bipolar disorder Subjective Notes: Conditional Voluntary Interim History: The nursing staff reported that she had been attention seeking, medication compliant. The child protective services social worker will update [facility]. On interview the patient denies new symptoms. Compliant with treatment, we will do a new UA after treatment for UTI. Mental Status Exam Mental Status Exam Patient Appearance: Appropriate Patient Orientation: Person and Situation Level of Consciousness: Awake Patient Behavior: Guarded and Passive Mood Description: Withdrawn Affect Description: Constricted Patient Cognition Impaired: Yes Ability to Follow Directions: Good Speech Pattern: Clear Hallucinations: None Delusions: Paranoid Ideation and Ideas of Reference Thought Process: Distracted and Slowed Thinking Thought Content: positive for [place] and positive for Poverty of Content Judgement: Fair Diagnostics Vital Signs (24Hr): Vital Signs - 24 hr 08/26/24 20:00 Temperature 97.9 F Pulse Rate 66 Respiratory Rate 16 Blood Pressure 135/62 Pulse Oximetry 96 Oxygen Delivery Method Room Air Labs 08/27/24 07:42 08/27/24 07:42 Labs: Laboratory Results - last 48 hr 08/27/24 07:42 WBC 5.2 RBC 4.13 L Hgb 13.0 Hct 39.0 MCV 94.4 MCH 31.5 MCHC 33.3 RDW 13.2 Plt Count 237 MPV 10.7 Immature Gran % (Auto) 0.2 Neut % (Auto) 47.8 Lymph % (Auto) 32.4 Collin % (Auto) 14.8 H Eos % (Auto) 4.0 Baso % (Auto) 0.8 Lymph # (Auto) 1.7 Collin # (Auto) 0.8 Eos # (Auto) 0.2 Baso # (Auto) 0.0 Abs Immat Gran (auto) 0.01 Absolute Neuts (auto) 2.5 Absolute Nucleated RBC 0.000 Nucleated RBC % (auto) 0.0 Sodium 143 Potassium 4.3 Chloride 107 Carbon Dioxide 29 Anion Gap 11 L BUN 16 Creatinine 0.83 Estim Creat Clear Calc 59.3 Estimated GFR > 60 Random Glucose 89 Calcium 10.4 H Imaging Radiology Impressions: ITS Impressions Modified Barium Swallow 08/24/24 14:20 IMPRESSION: 1. Limited examination due to inability to visualize the hypopharynx. The procedure was terminated per request of the speech pathologist. Refer to the speech therapy report for further clarification This procedure was performed by Rusty Brennan PA-C, and supervised by Dr. Keane Electronically signed by: Jerry Keane MD 08/26/2024 08:36 AM [facility] Medications Medications Current Medications Acetaminophen (Acetaminophen 325 Mg Tablet) 650 mg PO Q6H PRN PRN Reason: Headache/Pain Mild Scale (1-3) Last Admin: 08/26/24 06:52 Dose: 650 mg Al Hydroxide/Mg Hydroxide (Magnesium Hydrox/Alum Hydrox 30 Ml Oral.Susp) 30 ml PO BID PRN PRN Reason: GERD Amoxicillin (Amoxicillin Oral Susp 400 Mg/5 Ml 75 Ml Susp.Recon) 500 mg PO 0600,1800 [facility] Last Admin: 08/27/24 06:41 Dose: 500 mg Artificial Tears (Artificial Tears 15 Ml Drops) 1 drop EYE-BOTH TID [facility] Last Admin: 08/27/24 10:16 Dose: Not Given Benztropine Mesylate (Benztropine Mesylate 0.5 Mg Tablet) 0.5 mg PO BID [facility] Last Admin: 08/27/24 10:17 Dose: Not Given Bisacodyl (Bisacodyl 10 Mg Supp.Rect) 10 mg DC DAILY PRN PRN Reason: Mild Constipation Clopidogrel Bisulfate (Clopidogrel Bisulfate 75 Mg Tablet) 75 mg PO DAILY [facility] Last Admin: 08/27/24 10:17 Dose: Not Given Cyclobenzaprine HCl (Cyclobenzaprine Hcl 5 Mg Tablet) 5 mg PO TID PRN PRN Reason: DYSTONIA Divalproex Sodium (Divalproex Sodium Sprinkles 125 Mg ) 500 mg PO BID [facility] Last Admin: 08/27/24 10:17 Dose: Not Given Docusate Sodium (Docusate Sodium 100 Mg Capsule) 100 mg PO BID [facility] Last Admin: 08/27/24 10:17 Dose: Not Given Ezetimibe (Ezetimibe 10 Mg Tablet) 10 mg PO BEDTIME [facility] Last Admin: 08/26/24 21:12 Dose: 10 mg Guaifenesin/Dextromethorphan (Guaifenesin Dm 100/10/5 Ml 5 Ml Syrup) 10 ml PO Q6H PRN PRN Reason: Cough Isosorbide Mononitrate (Isosorbide Mononitrate 60 Mg Tab.Er.24h) 60 mg PO DAILY [facility]; Protocol Last Admin: 08/27/24 10:17 Dose: Not Given Lactulose (Lactulose 20 Gm/30 Ml Solution) 10 gm PO BID PRN PRN Reason: moderate Constipation Levothyroxine Sodium (Levothyroxine Sodium 112 Mcg Tablet) 112 mcg PO DAILY@0600 [facility] Last Admin: 08/27/24 06:40 Dose: 112 mcg Lorazepam (Lorazepam 0.5 Mg Tablet) 0.5 mg PO BID [facility] Last Admin: 08/27/24 10:18 Dose: Not Given Lorazepam (Lorazepam 0.5 Mg Tablet) 0.5 mg PO Q6H PRN PRN Reason: Anxiety Last Admin: 08/23/24 03:30 Dose: 0.5 mg Magnesium Hydroxide (Milk Of Magnesia 30 Ml Oral.Susp) 30 ml PO DAILY PRN PRN Reason: Constipation Melatonin (Melatonin 3 Mg Tablet) 6 mg PO BEDTIME [facility] Last Admin: 08/26/24 21:10 Dose: 6 mg Nitroglycerin (Nitroglycerin 0.4 Mg Tab.Subl) 0.4 mg SUBLINGUAL Q5M PRN PRN Reason: Chest Pain Olanzapine (Olanzapine 5 Mg Tablet) 5 mg PO TID PRN PRN Reason: agitation Oxybutynin Chloride (Oxybutynin Chloride 5 Mg Tablet) 5 mg PO DAILY [facility] Last Admin: 08/27/24 10:18 Dose: Not Given Pantoprazole Sodium (Pantoprazole Sodium 20 Mg Tablet.Dr) 40 mg PO DAILY@0630 [facility] Last Admin: 08/27/24 06:40 Dose: 40 mg Polyethylene Glycol (Polyethylene Glycol 3350 17 Gm Powd.Pack) 17 gm PO DAILY [facility] Last Admin: 08/27/24 06:41 Dose: 17 gm Polyethylene Glycol (Polyethylene Glycol 3350 17 Gm Powd.Pack) 17 gm PO DAILY PRN PRN Reason: Constipation Last Admin: 08/26/24 06:52 Dose: 17 gm Pregabalin (Pregabalin 75 Mg Capsule) 75 mg PO BID [facility] Last Admin: 08/27/24 10:20 Dose: Not Given Senna (Sennosides 8.6 Mg Tablet) 17.2 mg PO BEDTIME [facility] Last Admin: 08/26/24 21:12 Dose: 17.2 mg Trazodone HCl (Trazodone Hcl 25 Mg Halftab) 25 mg PO BEDTIME MRX1 PRN PRN Reason: Insomnia Vitamin D (Cholecalciferol (Vitamin D3) 25 Mcg Tablet) 25 mcg PO DAILY [facility] Last Admin: 08/27/24 10:17 Dose: Not Given Allergies Allergies Allergy/AdvReac Type Severity Reaction Status Date / Time desonide Allergy Intermediate Unknown Verified 08/21/24 01:32 hydrocortisone Allergy Intermediate Unknown Verified 08/21/24 01:34 metoprolol Allergy Intermediate Unknown Verified 08/21/24 01:34 minocycline Allergy Intermediate Unknown Verified 08/21/24 01:35 niacin Allergy Intermediate Unknown Verified 08/21/24 01:35 NSAIDS (Non-Steroidal Allergy Intermediate Unknown Verified 08/21/24 01:33 Anti-Inflamma tetracycline Allergy Intermediate Unknown Verified 08/21/24 01:36 venlafaxine Allergy Intermediate Unknown Verified 08/21/24 01:36 latex Allergy Unknown Verified 08/21/24 01:37 gentamicin AdvReac Severe Unknown Verified 08/21/24 01:33 Assessment & Plan Assessment & Plan (1) UTI (urinary tract infection): Status: Acute Code(s): N39.0 - Urinary tract infection, site not specified (2) Schizophrenia: Status: Acute Code(s): F20.9 - Schizophrenia, unspecified Plan An 78-year-old female from [facility] [place] with a past medical history significant for anxiety, bipolar disorder, borderline personality disorder, chronic kidney disease (CKD), drug-induced subacute dyskinesia, dry mouth, hypothyroidism, suicidal behavior, PTSD, COPD, dementia, dystonia, hyperlipidemia, insomnia, major depressive disorder, schizoaffective disorder, and a history of urinary tract infections (UTIs) presented to [facility] under Section 12 for chronic sadness, increased agitation, and suicidal ideation. PMH: s/p pacemaker, HTN, HLD, hypothyroidism Plan: continue Psychiatric care for schizoaffective d/o, bipolar continue levothyroxine for hypothyroidis continue zetia for HLD Start amoxicillin for UTI and follow culture Indication for Plavix not clear at this time, but suspect CAD, along with Mdur, continue for now constipation, bowel regimen Plan 1. Gather collateral information. 2. According to admission care, she had Invega Sustenna shot on August 18. There asking to increase to the maximum dose to 234 mg. 3. Continue with medical workout and treatment for UTI. 4. CBC with differential, basic metabolic panel and UA for August 27. Reason for continued inpatient stay Substantial Risk for: inability to function, rapid decompensation and med/psych decompensation Time Spent With Patient Time: Total time managing care of this patient today __20__ minutes.
[2024-08-27 15:40] VITALS: BP 125/71; PULSE 57; RESP 18; O2SAT 95
--- NOTE | 2024-08-27 15:42 | PC.NURSE ---
AM meds were held d/t pt asleep till after 14:00. VS re-check for 125/71, P 57, O2sat 95% on RA. Dr Andersen notified. Will continue to monitor.
[2024-08-27 20:00] VITALS: BP 180/77; PULSE 85; RESP 18; TEMP 36.4; O2SAT 96
[2024-08-27] MEDS: Pregabalin 75 MG CAPSULE PO (20:32)
[2024-08-27] MEDS: Melatonin 3 MG TABLET 6 MG PO (20:32)
[2024-08-27] MEDS: Docusate Sodium 100 MG CAPSULE PO (20:33)
[2024-08-27] MEDS: Divalproex Sodium Sprinkles 125 MG CAP.DR.SPR 500 MG PO (20:33)
[2024-08-27] MEDS: Ezetimibe 10 MG TABLET PO (20:33)
[2024-08-27] MEDS: LORazepam 0.5 MG TABLET PO (20:33)
[2024-08-27] MEDS: Benztropine Mesylate 0.5 MG TABLET PO (20:33)
[2024-08-27] MEDS: Sennosides 8.6 MG TABLET 17.2 MG PO (20:35)
[2024-08-28] MEDS: Amoxicillin Oral Susp 400 mg/5 mL 75 mL SUSP.RECON 500 MG PO ×2 (05:52→17:52)
[2024-08-28] MEDS: Pantoprazole Sodium 20 MG TABLET.DR 40 MG PO (05:54)
[2024-08-28] MEDS: Levothyroxine Sodium 112 MCG TABLET PO (05:54)
[2024-08-28 08:00] VITALS: BP 142/78; PULSE 80; RESP 18; TEMP 36.8; O2SAT 95
[2024-08-28] MEDS: Pregabalin 75 MG CAPSULE PO ×2 (08:59→22:21)
[2024-08-28] MEDS: oxyBUTYnin chloride 5 MG TABLET PO (08:59)
[2024-08-28] MEDS: Isosorbide Mononitrate 60 MG TAB.ER.24H PO (08:59)
[2024-08-28] MEDS: Divalproex Sodium Sprinkles 125 MG CAP.DR.SPR 500 MG PO ×2 (08:59→22:18)
[2024-08-28] MEDS: Docusate Sodium 100 MG CAPSULE PO (08:59)
[2024-08-28] MEDS: Cholecalciferol (Vitamin D3) 25 MCG TABLET PO (08:59)
[2024-08-28] MEDS: LORazepam 0.5 MG TABLET PO ×2 (08:59→22:18)
[2024-08-28] MEDS: Clopidogrel Bisulfate 75 MG TABLET PO (08:59)
[2024-08-28] MEDS: Benztropine Mesylate 0.5 MG TABLET PO ×2 (08:59→22:20)
--- NOTE | 2024-08-28 09:30 | HO.PSYCHPN ---
Subjective Subjective Date of Service: 08/28/24 Reason For Visit: unspecified schizophrenia, bipolar disorder Interim History: Pt seen, in bed, asleep Reviewed with team who report she spends a good deal of time sleeping. No sx of distress, no discomfort observed and pt is calm when seen. Medication Compliance: Yes Side effects from medications: No Attending Groups: Intermittent Review of Systems Acute medical concerns: No Medical Review of Systems: unchanged Review of Systems Review of Systems Yes Unobtainable due to mental status Mental Status Exam Mental Status Exam Patient Appearance: Appropriate Patient Orientation: Person and Situation Level of Consciousness: Awake Patient Behavior: Guarded and Passive Mood Description: Withdrawn Affect Description: Constricted Patient Cognition Impaired: Yes Ability to Follow Directions: Good Speech Pattern: Clear Hallucinations: None Delusions: Paranoid Ideation and Ideas of Reference Thought Process: Distracted and Slowed Thinking Thought Content: positive for [place] and positive for Poverty of Content Judgement: Fair Diagnostics Vital Signs (24Hr): Vital Signs - 24 hr 08/27/24 15:40 08/27/24 20:00 Temperature 97.6 F Pulse Rate 57 85 Respiratory Rate 18 18 Blood Pressure 125/71 180/77 H Pulse Oximetry 95 96 Oxygen Delivery Method Room Air Room Air Labs 08/27/24 07:42 08/27/24 07:42 Labs: Laboratory Results - last 48 hr 08/27/24 07:42 WBC 5.2 RBC 4.13 L Hgb 13.0 Hct 39.0 MCV 94.4 MCH 31.5 MCHC 33.3 RDW 13.2 Plt Count 237 MPV 10.7 Immature Gran % (Auto) 0.2 Neut % (Auto) 47.8 Lymph % (Auto) 32.4 [place] % (Auto) 14.8 H Eos % (Auto) 4.0 Baso % (Auto) 0.8 Lymph # (Auto) 1.7 [place] # (Auto) 0.8 Eos # (Auto) 0.2 Baso # (Auto) 0.0 Abs Immat Gran (auto) 0.01 Absolute Neuts (auto) 2.5 Absolute Nucleated RBC 0.000 Nucleated RBC % (auto) 0.0 Sodium 143 Potassium 4.3 Chloride 107 Carbon Dioxide 29 Anion Gap 11 L BUN 16 Creatinine 0.83 Estim Creat Clear Calc 59.3 Estimated GFR > 60 Random Glucose 89 Calcium 10.4 H Imaging Radiology Impressions: ITS Impressions Modified Barium Swallow 08/24/24 14:20 IMPRESSION: 1. Limited examination due to inability to visualize the hypopharynx. The procedure was terminated per request of the speech pathologist. Refer to the speech therapy report for further clarification This procedure was performed by Rusty Brennan PA-C, and supervised by Dr. Keane Electronically signed by: Jerry Keane MD 08/26/2024 08:36 [place] [facility] [place] Medications Current Medications Acetaminophen (Acetaminophen 325 Mg Tablet) 650 mg PO Q6H PRN PRN Reason: Headache/Pain Mild Scale (1-3) Last Admin: 08/26/24 06:52 Dose: 650 mg Al Hydroxide/Mg Hydroxide (Magnesium Hydrox/Alum Hydrox 30 Ml Oral.Susp) 30 ml PO BID PRN PRN Reason: GERD Amoxicillin (Amoxicillin Oral Susp 400 Mg/5 Ml 75 Ml Susp.Recon) 500 mg PO 0600,1800 [facility] Last Admin: 08/28/24 05:52 Dose: 500 mg Artificial Tears (Artificial Tears 15 Ml Drops) 1 drop EYE-BOTH TID [facility] Last Admin: 08/28/24 09:06 Dose: Not Given Benztropine Mesylate (Benztropine Mesylate 0.5 Mg Tablet) 0.5 mg PO BID [facility] Last Admin: 08/28/24 08:59 Dose: 0.5 mg Bisacodyl (Bisacodyl 10 Mg Supp.Rect) 10 mg [place] DAILY PRN PRN Reason: Mild Constipation Clopidogrel Bisulfate (Clopidogrel Bisulfate 75 Mg Tablet) 75 mg PO DAILY [facility] Last Admin: 08/28/24 08:59 Dose: 75 mg Cyclobenzaprine HCl (Cyclobenzaprine Hcl 5 Mg Tablet) 5 mg PO TID PRN PRN Reason: DYSTONIA Divalproex Sodium (Divalproex Sodium Sprinkles 125 Mg Cap.) 500 mg PO BID [facility] Last Admin: 08/28/24 08:59 Dose: 500 mg Docusate Sodium (Docusate Sodium 100 Mg Capsule) 100 mg PO BID [facility] Last Admin: 08/28/24 08:59 Dose: 100 mg Ezetimibe (Ezetimibe 10 Mg Tablet) 10 mg PO BEDTIME [facility] Last Admin: 08/27/24 20:33 Dose: 10 mg Guaifenesin/Dextromethorphan (Guaifenesin Dm 100/10/5 Ml 5 Ml Syrup) 10 ml PO Q6H PRN PRN Reason: Cough Isosorbide Mononitrate (Isosorbide Mononitrate 60 Mg Tab.Er.24h) 60 mg PO DAILY [facility]; Protocol Last Admin: 08/28/24 08:59 Dose: 60 mg Lactulose (Lactulose 20 Gm/30 Ml Solution) 10 gm PO BID PRN PRN Reason: moderate Constipation Levothyroxine Sodium (Levothyroxine Sodium 112 Mcg Tablet) 112 mcg PO DAILY@0600 [facility] Last Admin: 08/28/24 05:54 Dose: 112 mcg Lorazepam (Lorazepam 0.5 Mg Tablet) 0.5 mg PO BID [facility] Last Admin: 08/28/24 08:59 Dose: 0.5 mg Lorazepam (Lorazepam 0.5 Mg Tablet) 0.5 mg PO Q6H PRN PRN Reason: Anxiety Last Admin: 08/23/24 03:30 Dose: 0.5 mg Magnesium Hydroxide (Milk Of Magnesia 30 Ml Oral.Susp) 30 ml PO DAILY PRN PRN Reason: Constipation Melatonin (Melatonin 3 Mg Tablet) 6 mg PO BEDTIME [facility] Last Admin: 08/27/24 20:32 Dose: 6 mg Nitroglycerin (Nitroglycerin 0.4 Mg Tab.Subl) 0.4 mg SUBLINGUAL Q5M PRN PRN Reason: Chest Pain Olanzapine (Olanzapine 5 Mg Tablet) 5 mg PO TID PRN PRN Reason: agitation Oxybutynin Chloride (Oxybutynin Chloride 5 Mg Tablet) 5 mg PO DAILY [facility] Last Admin: 08/28/24 08:59 Dose: 5 mg Pantoprazole Sodium (Pantoprazole Sodium 20 Mg Tablet.Dr) 40 mg PO DAILY@0630 [facility] Last Admin: 08/28/24 05:54 Dose: 40 mg Polyethylene Glycol (Polyethylene Glycol 3350 17 Gm Powd.Pack) 17 gm PO DAILY [facility] Last Admin: 08/28/24 09:07 Dose: Not Given Polyethylene Glycol (Polyethylene Glycol 3350 17 Gm Powd.Pack) 17 gm PO DAILY PRN PRN Reason: Constipation Last Admin: 08/26/24 06:52 Dose: 17 gm Pregabalin (Pregabalin 75 Mg Capsule) 75 mg PO BID [facility] Last Admin: 08/28/24 08:59 Dose: 75 mg Senna (Sennosides 8.6 Mg Tablet) 17.2 mg PO BEDTIME [facility] Last Admin: 08/27/24 20:35 Dose: 17.2 mg Trazodone HCl (Trazodone Hcl 25 Mg Halftab) 25 mg PO BEDTIME MRX1 PRN PRN Reason: Insomnia Vitamin D (Cholecalciferol (Vitamin D3) 25 Mcg Tablet) 25 mcg PO DAILY [facility] Last Admin: 08/28/24 08:59 Dose: 25 mcg Allergies Allergies Allergy/AdvReac Type Severity Reaction Status Date / Time desonide Allergy Intermediate Unknown Verified 08/21/24 01:32 hydrocortisone Allergy Intermediate Unknown Verified 08/21/24 01:34 metoprolol Allergy Intermediate Unknown Verified 08/21/24 01:34 minocycline Allergy Intermediate Unknown Verified 08/21/24 01:35 niacin Allergy Intermediate Unknown Verified 08/21/24 01:35 NSAIDS (Non-Steroidal Allergy Intermediate Unknown Verified 08/21/24 01:33 Anti-Inflamma tetracycline Allergy Intermediate Unknown Verified 08/21/24 01:36 venlafaxine Allergy Intermediate Unknown Verified 08/21/24 01:36 latex Allergy Unknown Verified 08/21/24 01:37 gentamicin AdvReac Severe Unknown Verified 08/21/24 01:33 Assessment & Plan Assessment & Plan (1) UTI (urinary tract infection): Status: Acute Code(s): N39.0 - Urinary tract infection, site not specified (2) Schizophrenia: Status: Acute Code(s): F20.9 - Schizophrenia, unspecified Plan An 78-year-old female from [facility] [place] with a past medical history significant for anxiety, bipolar disorder, borderline personality disorder, chronic kidney disease (CKD), drug-induced subacute dyskinesia, dry mouth, hypothyroidism, suicidal behavior, PTSD, COPD, dementia, dystonia, hyperlipidemia, insomnia, major depressive disorder, schizoaffective disorder, and a history of urinary tract infections (UTIs) presented to [facility] under Section 12 for chronic sadness, increased agitation, and suicidal ideation. PMH: s/p pacemaker, HTN, HLD, hypothyroidism Plan: continue Psychiatric care for schizoaffective d/o, bipolar continue levothyroxine for hypothyroidis continue zetia for HLD Start amoxicillin for UTI and follow culture Indication for Plavix not clear at this time, but suspect CAD, along with Mdur, continue for now constipation, bowel regimen Plan 1. Gather collateral information. 2. According to admission care, she had Invega Sustenna shot on August 18. There asking to increase to the maximum dose to 234 mg. 3. Continue with medical workout and treatment for UTI. 4. CBC with differential, basic metabolic panel and UA for August 27. 08/28/24: Continue plan/regime. Reason for continued inpatient stay Substantial Risk for: rapid decompensation Time Spent With Patient Time: Total time managing care of this patient today ____ minutes.
[2024-08-28] MEDS: Artificial Tears 15 ML DROPS 1 DROP EYE-BOTH (14:41)
[2024-08-28 20:00] VITALS: BP 115/62; PULSE 64; RESP 16; TEMP 36.1; O2SAT 94
[2024-08-28] MEDS: Melatonin 3 MG TABLET 6 MG PO (22:19)
[2024-08-28] MEDS: Ezetimibe 10 MG TABLET PO (22:19)
[2024-08-29] MEDS: Cyclobenzaprine HCl 5 MG TABLET PO ×2 (04:44→23:49)
[2024-08-29] MEDS: Acetaminophen 325 MG TABLET 650 MG PO ×2 (04:45→23:50)
[2024-08-29] MEDS: Amoxicillin Oral Susp 400 mg/5 mL 75 mL SUSP.RECON 500 MG PO ×2 (05:05→17:52)
[2024-08-29] MEDS: Pantoprazole Sodium 20 MG TABLET.DR 40 MG PO (05:05)
[2024-08-29] MEDS: Levothyroxine Sodium 112 MCG TABLET PO (05:05)
[2024-08-29 08:00] VITALS: BP 144/74; PULSE 69; RESP 18; TEMP 36.7; O2SAT 94
[2024-08-29] MEDS: Divalproex Sodium Sprinkles 125 MG CAP.DR.SPR 500 MG PO ×2 (08:25→21:16)
[2024-08-29] MEDS: Isosorbide Mononitrate 60 MG TAB.ER.24H PO (08:25)
[2024-08-29] MEDS: Clopidogrel Bisulfate 75 MG TABLET PO (08:25)
[2024-08-29] MEDS: Benztropine Mesylate 0.5 MG TABLET PO ×2 (08:25→21:16)
[2024-08-29] MEDS: Pregabalin 75 MG CAPSULE PO ×2 (08:26→21:16)
[2024-08-29] MEDS: oxyBUTYnin chloride 5 MG TABLET PO (08:26)
[2024-08-29] MEDS: Cholecalciferol (Vitamin D3) 25 MCG TABLET PO (08:26)
[2024-08-29] MEDS: Docusate Sodium 100 MG CAPSULE PO ×2 (08:26→21:16)
[2024-08-29] MEDS: LORazepam 0.5 MG TABLET PO ×2 (08:26→21:16)
--- NOTE | 2024-08-29 09:42 | HO.PSYCHPN ---
Subjective Subjective Date of Service: 08/29/24 Reason For Visit: unspecified schizophrenia, bipolar disorder Interim History: Pt seen, review with her team who describe her as sleepy Pt sleeping when seen-she awakens well, alert, attentive, not too verbal today, however does not appear overmedicated. Spontaneous smile, appropriate eye contact, appropriate nods when asked about symptoms. Does report she feels tired today. Medication Compliance: Yes Side effects from medications: Yes (??) Attending Groups: No Review of Systems Acute medical concerns: No Medical Review of Systems: unchanged Review of Systems Review of Systems Yes Unobtainable due to mental status Mental Status Exam Mental Status Exam Patient Appearance: Appropriate Patient Orientation: Person and Situation Level of Consciousness: Awake Patient Behavior: Guarded and Passive Mood Description: Withdrawn Affect Description: Constricted Patient Cognition Impaired: Yes Ability to Follow Directions: Good Speech Pattern: Clear Hallucinations: None Delusions: Paranoid Ideation and Ideas of Reference Thought Process: Distracted and Slowed Thinking Thought Content: positive for [place] and positive for Poverty of Content Judgement: Fair Diagnostics Vital Signs (24Hr): Vital Signs - 24 hr 08/28/24 20:00 08/29/24 08:00 Temperature 97 F 98.1 F Pulse Rate 64 69 Respiratory Rate 16 18 Blood Pressure 115/62 144/74 H Pulse Oximetry 94 94 Oxygen Delivery Method Room Air Room Air Labs 08/27/24 07:42 08/27/24 07:42 Imaging Radiology Impressions: ITS Impressions Modified Barium Swallow 08/24/24 14:20 IMPRESSION: 1. Limited examination due to inability to visualize the hypopharynx. The procedure was terminated per request of the speech pathologist. Refer to the speech therapy report for further clarification This procedure was performed by Rusty Brennan PA-C, and supervised by Dr. Keane Electronically signed by: Jerry Keane MD 08/26/2024 08:36 AM [facility] Medications Medications Current Medications Acetaminophen (Acetaminophen 325 Mg Tablet) 650 mg PO Q6H PRN PRN Reason: Headache/Pain Mild Scale (1-3) Last Admin: 08/29/24 04:45 Dose: 650 mg Al Hydroxide/Mg Hydroxide (Magnesium Hydrox/Alum Hydrox 30 Ml Oral.Susp) 30 ml PO BID PRN PRN Reason: GERD Amoxicillin (Amoxicillin Oral Susp 400 Mg/5 Ml 75 Ml Susp.Recon) 500 mg PO 0600,1800 [facility] Last Admin: 08/29/24 05:05 Dose: 500 mg Artificial Tears (Artificial Tears 15 Ml Drops) 1 drop EYE-BOTH TID [facility] Last Admin: 08/29/24 08:27 Dose: Not Given Benztropine Mesylate (Benztropine Mesylate 0.5 Mg Tablet) 0.5 mg PO BID [facility] Last Admin: 08/29/24 08:25 Dose: 0.5 mg Bisacodyl (Bisacodyl 10 Mg Supp.Rect) 10 mg [place] DAILY PRN PRN Reason: Mild Constipation Clopidogrel Bisulfate (Clopidogrel Bisulfate 75 Mg Tablet) 75 mg PO DAILY [facility] Last Admin: 08/29/24 08:25 Dose: 75 mg Cyclobenzaprine HCl (Cyclobenzaprine Hcl 5 Mg Tablet) 5 mg PO TID PRN PRN Reason: DYSTONIA Last Admin: 08/29/24 04:44 Dose: 5 mg Divalproex Sodium (Divalproex Sodium Sprinkles 125 Mg Cap.Dr.Spr) 500 mg PO BID [facility] Last Admin: 08/29/24 08:25 Dose: 500 mg Docusate Sodium (Docusate Sodium 100 Mg Capsule) 100 mg PO BID [facility] Last Admin: 08/29/24 08:26 Dose: 100 mg Ezetimibe (Ezetimibe 10 Mg Tablet) 10 mg PO BEDTIME [facility] Last Admin: 08/28/24 22:19 Dose: 10 mg Guaifenesin/Dextromethorphan (Guaifenesin Dm 100/10/5 Ml 5 Ml Syrup) 10 ml PO Q6H PRN PRN Reason: Cough Isosorbide Mononitrate (Isosorbide Mononitrate 60 Mg Tab.Er.24h) 60 mg PO DAILY [facility]; Protocol Last Admin: 08/29/24 08:25 Dose: 60 mg Lactulose (Lactulose 20 Gm/30 Ml Solution) 10 gm PO BID PRN PRN Reason: moderate Constipation Levothyroxine Sodium (Levothyroxine Sodium 112 Mcg Tablet) 112 mcg PO DAILY@0600 [facility] Last Admin: 08/29/24 05:05 Dose: 112 mcg Lorazepam (Lorazepam 0.5 Mg Tablet) 0.5 mg PO BID [facility] Last Admin: 08/29/24 08:26 Dose: 0.5 mg Lorazepam (Lorazepam 0.5 Mg Tablet) 0.5 mg PO Q6H PRN PRN Reason: Anxiety Last Admin: 08/23/24 03:30 Dose: 0.5 mg Magnesium Hydroxide (Milk Of Magnesia 30 Ml Oral.Susp) 30 ml PO DAILY PRN PRN Reason: Constipation Melatonin (Melatonin 3 Mg Tablet) 6 mg PO BEDTIME [facility] Last Admin: 08/28/24 22:19 Dose: 6 mg Nitroglycerin (Nitroglycerin 0.4 Mg Tab.Subl) 0.4 mg SUBLINGUAL Q5M PRN PRN Reason: Chest Pain Olanzapine (Olanzapine 5 Mg Tablet) 5 mg PO TID PRN PRN Reason: agitation Oxybutynin Chloride (Oxybutynin Chloride 5 Mg Tablet) 5 mg PO DAILY [facility] Last Admin: 08/29/24 08:26 Dose: 5 mg Pantoprazole Sodium (Pantoprazole Sodium 20 Mg Tablet.Dr) 40 mg PO DAILY@0630 [facility] Last Admin: 08/29/24 05:05 Dose: 40 mg Polyethylene Glycol (Polyethylene Glycol 3350 17 Gm Powd.Pack) 17 gm PO DAILY [facility] Last Admin: 08/29/24 08:36 Dose: Not Given Polyethylene Glycol (Polyethylene Glycol 3350 17 Gm Powd.Pack) 17 gm PO DAILY PRN PRN Reason: Constipation Last Admin: 08/26/24 06:52 Dose: 17 gm Pregabalin (Pregabalin 75 Mg Capsule) 75 mg PO BID [facility] Last Admin: 08/29/24 08:26 Dose: 75 mg Senna (Sennosides 8.6 Mg Tablet) 17.2 mg PO BEDTIME [facility] Last Admin: 08/28/24 22:29 Dose: Not Given Trazodone HCl (Trazodone Hcl 25 Mg Halftab) 25 mg PO BEDTIME MRX1 PRN PRN Reason: Insomnia Vitamin D (Cholecalciferol (Vitamin D3) 25 Mcg Tablet) 25 mcg PO DAILY [facility] Last Admin: 08/29/24 08:26 Dose: 25 mcg Allergies Allergies Allergy/AdvReac Type Severity Reaction Status Date / Time desonide Allergy Intermediate Unknown Verified 08/21/24 01:32 hydrocortisone Allergy Intermediate Unknown Verified 08/21/24 01:34 metoprolol Allergy Intermediate Unknown Verified 08/21/24 01:34 minocycline Allergy Intermediate Unknown Verified 08/21/24 01:35 niacin Allergy Intermediate Unknown Verified 08/21/24 01:35 NSAIDS (Non-Steroidal Allergy Intermediate Unknown Verified 08/21/24 01:33 Anti-Inflamma tetracycline Allergy Intermediate Unknown Verified 08/21/24 01:36 venlafaxine Allergy Intermediate Unknown Verified 08/21/24 01:36 latex Allergy Unknown Verified 08/21/24 01:37 gentamicin AdvReac Severe Unknown Verified 08/21/24 01:33 Assessment & Plan Assessment & Plan (1) UTI (urinary tract infection): Status: Acute Code(s): N39.0 - Urinary tract infection, site not specified (2) Schizophrenia: Status: Acute Code(s): F20.9 - Schizophrenia, unspecified Plan An 78-year-old female from [facility] [place] with a past medical history significant for anxiety, bipolar disorder, borderline personality disorder, chronic kidney disease (CKD), drug-induced subacute dyskinesia, dry mouth, hypothyroidism, suicidal behavior, PTSD, COPD, dementia, dystonia, hyperlipidemia, insomnia, major depressive disorder, schizoaffective disorder, and a history of urinary tract infections (UTIs) presented to [facility] under [facility] 12 for chronic sadness, increased agitation, and suicidal ideation. PMH: s/p pacemaker, HTN, HLD, hypothyroidism Plan: continue Psychiatric care for schizoaffective d/o, bipolar continue levothyroxine for hypothyroidis continue zetia for HLD Start amoxicillin for UTI and follow culture Indication for Plavix not clear at this time, but suspect CAD, along with Mdur, continue for now constipation, bowel regimen Plan 1. Gather collateral information. 2. According to admission care, she had Invega Sustenna shot on August 18. There asking to increase to the maximum dose to 234 mg. 3. Continue with medical workout and treatment for UTI. 4. CBC with differential, basic metabolic panel and UA for August 27. 08/29/24: Continue regime and plan. Reason for continued inpatient stay Substantial Risk for: rapid decompensation Time Spent With Patient Time: Total time managing care of this patient today ____ minutes.
[2024-08-29 19:56] VITALS: BP 124/76; PULSE 92; RESP 16; TEMP 37.1; O2SAT 94
[2024-08-29] MEDS: Melatonin 3 MG TABLET 6 MG PO (21:16)
[2024-08-29] MEDS: Ezetimibe 10 MG TABLET PO (21:16)
[2024-08-29] MEDS: Sennosides 8.6 MG TABLET 17.2 MG PO (21:17)
[2024-08-29] MEDS: traZODone HCL 25 MG HALFTAB PO (23:49)
[2024-08-30] MEDS: Levothyroxine Sodium 112 MCG TABLET PO (06:39)
[2024-08-30] MEDS: Pantoprazole Sodium 20 MG TABLET.DR 40 MG PO (06:39)
[2024-08-30] MEDS: Amoxicillin Oral Susp 400 mg/5 mL 75 mL SUSP.RECON 500 MG PO ×2 (06:41→18:48)
[2024-08-30 07:55] VITALS: BP 125/60; PULSE 78; RESP 18; TEMP 36.4; O2SAT 94
--- NOTE | 2024-08-30 08:30 | P.PNPSI_ITS ---
Subjective Subjective Date of Service: 08/30/24 Reason For Visit: unspecified schizophrenia, bipolar disorder Interim History: Team reports pt to be too oversedate. They request med decreases. Will obtain valproate level as well Needing sternal rubs by team to awaken, intake is decreased, current UTI probably contributing Medication Compliance: Yes Side effects from medications: Yes Review of Systems Review of Systems ?overmedicated Mental Status Exam Mental Status Exam Level of Consciousness: Drowsy and Sedated Diagnostics Vital Signs (24Hr): Vital Signs - 24 hr 08/29/24 19:56 Temperature 98.8 F Pulse Rate 92 Respiratory Rate 16 Blood Pressure 124/76 Pulse Oximetry 94 Oxygen Delivery Method Room Air Labs 08/27/24 07:42 08/27/24 07:42 Imaging Radiology Impressions: ITS Impressions Modified Barium Swallow 08/24/24 14:20 IMPRESSION: 1. Limited examination due to inability to visualize the hypopharynx. The procedure was terminated per request of the speech pathologist. Refer to the speech therapy report for further clarification This procedure was performed by Rusty Brennan PA-C, and supervised by Dr. Keane Electronically signed by: Jerry Keane MD 08/26/2024 08:36 AM [facility] Medications Medications Current Medications Acetaminophen (Acetaminophen 325 Mg Tablet) 650 mg PO Q6H PRN PRN Reason: Headache/Pain Mild Scale (1-3) Last Admin: 08/29/24 23:50 Dose: 650 mg Al Hydroxide/Mg Hydroxide (Magnesium Hydrox/Alum Hydrox 30 Ml Oral.Susp) 30 ml PO BID PRN PRN Reason: GERD Amoxicillin (Amoxicillin Oral Susp 400 Mg/5 Ml 75 Ml Susp.Recon) 500 mg PO 0600,1800 [facility] Last Admin: 08/30/24 06:41 Dose: 500 mg Artificial Tears (Artificial Tears 15 Ml Drops) 1 drop EYE-BOTH TID [facility] Last Admin: 08/29/24 21:16 Dose: Not Given Benztropine Mesylate (Benztropine Mesylate 0.5 Mg Tablet) 0.5 mg PO BID [facility] Last Admin: 08/29/24 21:16 Dose: 0.5 mg Bisacodyl (Bisacodyl 10 Mg Supp.Rect) 10 mg [place] DAILY PRN PRN Reason: Mild Constipation Clopidogrel Bisulfate (Clopidogrel Bisulfate 75 Mg Tablet) 75 mg PO DAILY [facility] Last Admin: 08/29/24 08:25 Dose: 75 mg Cyclobenzaprine HCl (Cyclobenzaprine Hcl 5 Mg Tablet) 5 mg PO TID PRN PRN Reason: DYSTONIA Last Admin: 08/29/24 23:49 Dose: 5 mg Divalproex Sodium (Divalproex Sodium Sprinkles 125 Mg ) 500 mg PO BID [facility] Last Admin: 08/29/24 21:16 Dose: 500 mg Docusate Sodium (Docusate Sodium 100 Mg Capsule) 100 mg PO BID [facility] Last Admin: 08/29/24 21:16 Dose: 100 mg Ezetimibe (Ezetimibe 10 Mg Tablet) 10 mg PO BEDTIME [facility] Last Admin: 08/29/24 21:16 Dose: 10 mg Guaifenesin/Dextromethorphan (Guaifenesin Dm 100/10/5 Ml 5 Ml Syrup) 10 ml PO Q6H PRN PRN Reason: Cough Isosorbide Mononitrate (Isosorbide Mononitrate 60 Mg Tab.Er.24h) 60 mg PO DAILY [facility]; Protocol Last Admin: 08/29/24 08:25 Dose: 60 mg Lactulose (Lactulose 20 Gm/30 Ml Solution) 10 gm PO BID PRN PRN Reason: moderate Constipation Levothyroxine Sodium (Levothyroxine Sodium 112 Mcg Tablet) 112 mcg PO DAILY@0600 [facility] Last Admin: 08/30/24 06:39 Dose: 112 mcg Lorazepam (Lorazepam 0.5 Mg Tablet) 0.5 mg PO BID [facility] Last Admin: 08/29/24 21:16 Dose: 0.5 mg Lorazepam (Lorazepam 0.5 Mg Tablet) 0.5 mg PO Q6H PRN PRN Reason: Anxiety Last Admin: 08/23/24 03:30 Dose: 0.5 mg Magnesium Hydroxide (Milk Of Magnesia 30 Ml Oral.Susp) 30 ml PO DAILY PRN PRN Reason: Constipation Melatonin (Melatonin 3 Mg Tablet) 6 mg PO BEDTIME [facility] Last Admin: 08/29/24 21:16 Dose: 6 mg Nitroglycerin (Nitroglycerin 0.4 Mg Tab.Subl) 0.4 mg SUBLINGUAL Q5M PRN PRN Reason: Chest Pain Olanzapine (Olanzapine 5 Mg Tablet) 5 mg PO TID PRN PRN Reason: agitation Oxybutynin Chloride (Oxybutynin Chloride 5 Mg Tablet) 5 mg PO DAILY [facility] Last Admin: 08/29/24 08:26 Dose: 5 mg Pantoprazole Sodium (Pantoprazole Sodium 20 Mg Tablet.Dr) 40 mg PO DAILY@0630 [facility] Last Admin: 08/30/24 06:39 Dose: 40 mg Polyethylene Glycol (Polyethylene Glycol 3350 17 Gm Powd.Pack) 17 gm PO DAILY [facility] Last Admin: 08/29/24 08:36 Dose: Not Given Polyethylene Glycol (Polyethylene Glycol 3350 17 Gm Powd.Pack) 17 gm PO DAILY PRN PRN Reason: Constipation Last Admin: 08/26/24 06:52 Dose: 17 gm Pregabalin (Pregabalin 75 Mg Capsule) 75 mg PO BID [facility] Last Admin: 08/29/24 21:16 Dose: 75 mg Senna (Sennosides 8.6 Mg Tablet) 17.2 mg PO BEDTIME [facility] Last Admin: 08/29/24 21:17 Dose: 17.2 mg Trazodone HCl (Trazodone Hcl 25 Mg Halftab) 25 mg PO BEDTIME MRX1 PRN PRN Reason: Insomnia Last Admin: 08/29/24 23:49 Dose: 25 mg Vitamin D (Cholecalciferol (Vitamin D3) 25 Mcg Tablet) 25 mcg PO DAILY [facility] Last Admin: 08/29/24 08:26 Dose: 25 mcg Allergies Allergies Allergy/AdvReac Type Severity Reaction Status Date / Time desonide Allergy Intermediate Unknown Verified 08/21/24 01:32 hydrocortisone Allergy Intermediate Unknown Verified 08/21/24 01:34 metoprolol Allergy Intermediate Unknown Verified 08/21/24 01:34 minocycline Allergy Intermediate Unknown Verified 08/21/24 01:35 niacin Allergy Intermediate Unknown Verified 08/21/24 01:35 NSAIDS (Non-Steroidal Allergy Intermediate Unknown Verified 08/21/24 01:33 Anti-Inflamma tetracycline Allergy Intermediate Unknown Verified 08/21/24 01:36 venlafaxine Allergy Intermediate Unknown Verified 08/21/24 01:36 latex Allergy Unknown Verified 08/21/24 01:37 gentamicin AdvReac Severe Unknown Verified 08/21/24 01:33 Assessment & Plan Assessment & Plan (1) UTI (urinary tract infection): Status: Acute Code(s): N39.0 - Urinary tract infection, site not specified (2) Schizophrenia: Status: Acute Code(s): F20.9 - Schizophrenia, unspecified Plan An 78-year-old female from [facility] with a past medical history significant for anxiety, bipolar disorder, borderline personality disorder, chronic kidney disease (CKD), drug-induced subacute dyskinesia, dry mouth, hypothyroidism, suicidal behavior, PTSD, COPD, dementia, dystonia, hyperlipidemia, insomnia, major depressive disorder, schizoaffective disorder, and a history of urinary tract infections (UTIs) presented to [facility] under [facility] 12 for chronic sadness, increased agitation, and suicidal ideation. PMH: s/p pacemaker, HTN, HLD, hypothyroidism Plan: continue Psychiatric care for schizoaffective d/o, bipolar continue levothyroxine for hypothyroidis continue zetia for HLD Start amoxicillin for UTI and follow culture Indication for Plavix not clear at this time, but suspect CAD, along with Griselda, continue for now constipation, bowel regimen Plan 1. Gather collateral information. 2. According to admission care, she had Invega Sustenna shot on August 18. There asking to increase to the maximum dose to 234 mg. 3. Continue with medical workout and treatment for UTI. 4. CBC with differential, basic metabolic panel and UA for August 27. 08/29/24: Continue regime and plan. 08/30: Valproate level Decrease benztropine to 0.25 mg bid Decrease Lorazepam to 0.25 mg bid and 0.25 mg q6prn Decrease Melatonin to 3 mg Decrease Lyrica to 50 mg bid Decrease Olanzapine to 2.5 mg tid prn Reason for continued inpatient stay Substantial Risk for: med/psych decompensation Time Spent With Patient Time: Total time managing care of this patient today ____ minutes.
[2024-08-30] MEDS: Clopidogrel Bisulfate 75 MG TABLET PO (08:44)
[2024-08-30] MEDS: Divalproex Sodium Sprinkles 125 MG CAP.DR.SPR 500 MG PO ×2 (08:44→21:16)
[2024-08-30] MEDS: LORazepam 0.5 MG TABLET PO (08:44)
[2024-08-30] MEDS: Benztropine Mesylate 0.5 MG TABLET PO (08:45)
[2024-08-30] MEDS: oxyBUTYnin chloride 5 MG TABLET PO (08:45)
[2024-08-30] MEDS: Cholecalciferol (Vitamin D3) 25 MCG TABLET PO (08:45)
[2024-08-30] MEDS: Isosorbide Mononitrate 60 MG TAB.ER.24H PO (08:45)
[2024-08-30] MEDS: Pregabalin 75 MG CAPSULE PO (08:45)
[2024-08-30] MEDS: Docusate Sodium 100 MG CAPSULE PO ×2 (08:45→21:17)
[2024-08-30 19:57] VITALS: BP 113/59; PULSE 71; RESP 18; TEMP 36.6; O2SAT 91
[2024-08-30] MEDS: LORazepam 0.5 MG TABLET 0.25 MG PO (21:16)
[2024-08-30] MEDS: Pregabalin 50 MG CAPSULE PO (21:17)
[2024-08-30] MEDS: Benztropine Mesylate 0.5 MG TABLET 0.25 MG PO (21:17)
[2024-08-30] MEDS: Sennosides 8.6 MG TABLET 17.2 MG PO (21:17)
[2024-08-30] MEDS: Ezetimibe 10 MG TABLET PO (21:17)
[2024-08-31] MEDS: Amoxicillin Oral Susp 400 mg/5 mL 75 mL SUSP.RECON 500 MG PO (05:32)
[2024-08-31] MEDS: Levothyroxine Sodium 112 MCG TABLET PO (05:32)
[2024-08-31] MEDS: Pantoprazole Sodium 20 MG TABLET.DR 40 MG PO (05:55)
[2024-08-31 07:58] LABS: Valproate 66.8 mcg/mL (50.0-100.0)
--- NOTE | 2024-08-31 09:03 | PM.PSYDC ---
DS: Providers Provider Date of Service: 08/31/24 Date of admission: 08/21/24 01:28 Date of discharge: 08/31/24 Primary care physician: Unknown Physician Consults: 08/21/24 01:53 Consult to Hospitalist Routine Comment: Consulting Provider: [facility] Hospitalists Reason For Exam: admission physical DS: Diagnosis Discharge Diagnosis (1) UTI (urinary tract infection): Status: Acute (2) Schizophrenia: Status: Acute DS: Medications Discharge Medications Home Medications: Home Medications ?Medication ?Instructions ?Recorded ?Confirmed aluminum-mag hydroxide-simethicone 30 ml PO BID PRN GERD 08/21/24 08/21/24 200 mg-200 mg-20 mg/5 mL oral susp artificial tears solution eye drops 1 drp ophthalmic (eye) TID 08/21/24 08/21/24 benztropine 0.5 mg tablet 0.5 mg PO BID DYSKINESIA 08/21/24 08/21/24 bisacodyl 10 mg rectal suppository 10 mg [place] DAILY PRN Constipation 08/21/24 08/21/24 cholecalciferol (vitamin D3) 25 25 mcg PO DAILY 08/21/24 08/21/24 mcg (1,000 unit) tablet clopidogrel 75 mg tablet 75 mg PO DAILY 08/21/24 08/21/24 cyclobenzaprine 5 mg tablet 5 mg PO TID PRN DYSTONIA 08/21/24 08/21/24 deutetrabenazine 36 mg 36 mg PO BEDTIME 08/21/24 08/21/24 tablet,extended release 24 hr dextromethorphan-guaifenesin 10 10 ml PO Q6H PRN Cough 08/21/24 08/21/24 mg-100 mg/5 mL oral liquid divalproex 125 mg capsule,delayed 500 mg PO BID 08/21/24 08/21/24 release sprinkle (Depakote Sprinkles) docusate sodium 100 mg capsule 100 mg PO BID 08/21/24 08/21/24 ezetimibe 10 mg tablet 10 mg PO BEDTIME 08/21/24 08/21/24 isosorbide mononitrate 60 mg 60 mg PO QAM 08/21/24 08/21/24 tablet,extended release 24 hr lactulose 10 gram/15 mL oral 10 g PO BID PRN Constipation 08/21/24 08/21/24 solution levothyroxine 112 mcg tablet 112 mcg PO DAILY@0630 08/21/24 08/21/24 lorazepam 0.5 mg tablet 0.5 mg PO BID Anxiety 08/21/24 08/21/24 lorazepam 0.5 mg tablet 0.5 mg PO Q6H PRN Anxiety 08/21/24 08/21/24 magnesium hydroxide 400 mg/5 mL 30 ml PO DAILY PRN Constipation 08/21/24 08/21/24 oral suspension (Milk of Magnesia) melatonin 3 mg tablet 6 mg PO BEDTIME 08/21/24 08/21/24 nitroglycerin 0.4 mg sublingual 0.4 mg sublingual Q5M PRN Chest 08/21/24 08/21/24 tablet Pain oxybutynin chloride 5 mg tablet 5 mg PO DAILY 08/21/24 08/21/24 paliperidone palmitate 156 mg/mL 156 mg IM Q28D 08/21/24 08/21/24 intramuscular syringe (Invega Sustenna) pantoprazole 40 mg granules 40 mg PO BEDTIME 08/21/24 08/21/24 delayed-release for susp in packet polyethylene glycol 3350 17 gram 17 g PO DAILY 08/21/24 08/21/24 oral powder packet (Miralax) pregabalin 75 mg capsule 75 mg PO BID 08/21/24 08/21/24 sennosides 8.6 mg tablet (senna) 17.2 mg PO BEDTIME 08/21/24 08/21/24 Mental Status Exam Mental Status Exam Patient Appearance: Appropriate Patient Orientation: Person and Situation Level of Consciousness: Awake Patient Behavior: Guarded and Passive Mood Description: Withdrawn Affect Description: Constricted Patient Cognition Impaired: Yes Speech Pattern: Clear Hallucinations: None Delusions: Paranoid Ideation and Ideas of Reference Thought Process: Distracted and Slowed Thinking Thought Content: positive for Lambert and positive for Poverty of Content Judgement: Fair Data Data Completed and Pending Completed studies during hospitalization [Text1]: 08/27/24 08/31/24 07:42 07:21 WBC 5.2 RBC 4.13 L Hgb 13.0 Hct 39.0 MCV 94.4 MCH 31.5 MCHC 33.3 RDW 13.2 Plt Count 237 MPV 10.7 Immature Gran % (Auto) 0.2 Neut % (Auto) 47.8 Lymph % (Auto) 32.4 Robertson % (Auto) 14.8 H Eos % (Auto) 4.0 Baso % (Auto) 0.8 Lymph # (Auto) 1.7 Robertson # (Auto) 0.8 Eos # (Auto) 0.2 Baso # (Auto) 0.0 Abs Immat Gran (auto) 0.01 Absolute Neuts (auto) 2.5 Absolute Nucleated RBC 0.000 Nucleated RBC % (auto) 0.0 Sodium 143 Potassium 4.3 Chloride 107 Carbon Dioxide 29 Anion Gap 11 L BUN 16 Creatinine 0.83 Estim Creat Clear Calc 59.3 Estimated GFR > 60 Random Glucose 89 Calcium 10.4 H Valproic Acid 66.8 08/21/24 19:00 Urine clean catch Urine Culture - Final Enterococcus faecalis Imaging Diagnostic Imaging Impressions Modified Barium Swallow 08/24/24 14:20 IMPRESSION: 1. Limited examination due to inability to visualize the hypopharynx. The procedure was terminated per request of the speech pathologist. Refer to the speech therapy report for further clarification This procedure was performed by Rusty Brennan PA-C, and supervised by Dr. Keane Electronically signed by: Jerry Keane MD 08/26/2024 08:36 AM [facility] DS: Summary Hospital Course Hospital Course: The patient is an 78-year-old female with a past history of schizophrenia resident of [facility] who was brought to [facility] since she was agitated, grossly psychotic and violent. She was transferred to this facility for continuation of care. Please see the HPI of the admission note for further details. On admission, the patient was confused but redirectable, she could not remember why she was here. We did a regular blood work and workout and she came up with a possible UTI that was treated with antibiotics. While she was with antibiotics she slowly recovered, she was more alert and awake pleasant cooperative but psychotic. Apparently she is at baseline at this point. Since there were no safety concerns discharge planning was discussed she is going back to [facility]. She is on Invega Sustenna long-acting injectable and her last shot was on August 16 so her next shot will be on September 13. We recommend that the dose of Invega Sustenna to be increased up to 234 mg IM monthly. Time spent discussing smoking cessation with patient: 3 to 10 minutes Status at Discharge Cognitive/behavioral status at discharge: Impaired at baseline Functional status at discharge: independent ambulation Overall status at discharge: patient is not back to baseline Time Spent with Patient Time attestation: Total time managing care of this patient today __30__ minutes. Time spent: Less than 30 minutes Discharge Plan Discharge Anticipated Discharge Date/Time: 08/31/24 10:00 Patient Disposition: Xfer SNF Discharge Diagnosis: Schizophrenia Delirium due to UTI resolved. Referrals: [facility] [Other] - 08/31/24 11:00 am (Transfer back to [facility] on 08/31/24 at 1100. ) Discharge Medications: New amoxicillin 400 mg/5 mL Suspension For Reconstitution 500 mg PO 0600,1800 2 Days Qty: 25 0RF acetaminophen 325 mg Tablet 650 mg PO Q6H PRN (Reason: Headache/Pain Mild Scale (1-3)) 30 Days Qty: 30 0RF benztropine 0.5 mg Tablet 0.25 mg PO BID 30 Days Qty: 30 0RF lorazepam 0.5 mg Tablet 0.25 mg PO BID 30 Days Qty: 30 0RF pregabalin 50 mg Capsule 50 mg PO BID 30 Days Qty: 60 0RF trazodone 50 mg tablet 25 mg PO BEDTIME MRX1 PRN (Reason: Insomnia) 30 Days Qty: 30 0RF Artificial Tears(bu-ixpm-phtr) 1-0.2-0.2 % Drops 1 drp ophthalmic (eye) TID 30 Days Qty: 5 0RF melatonin 3 mg Tablet 3 mg PO BEDTIME PRN (Reason: sleep) 30 Days Qty: 30 0RF Invega Sustenna 234 mg/1.5 mL syringe 234 mg IM Q30D Qty: 1.5 0RF Rx Instructions: Next dose on 09/16/2024 Continued sennosides [senna] 8.6 mg Tablet 17.2 mg PO BEDTIME 30 Days Qty: 60 0RF polyethylene glycol 3350 [Miralax] 17 gram Powder In Packet 17 g PO DAILY 30 Days Qty: 30 0RF dextromethorphan-guaifenesin 10-100 mg/5 mL Liquid 10 ml PO Q6H PRN (Reason: Cough) 30 Days Qty: 120 0RF clopidogrel 75 mg Tablet 75 mg PO DAILY 30 Days Qty: 30 0RF isosorbide mononitrate 60 mg Tablet Extended Release 24 Hr 60 mg PO QAM 30 Days Qty: 30 0RF magnesium hydroxide [Milk of Magnesia] 400 mg/5 mL Suspension 30 ml PO DAILY PRN (Reason: Constipation) 30 Days Qty: 120 0RF nitroglycerin 0.4 mg Tablet, Sublingual 0.4 mg SUBLINGUAL Q5M PRN (Reason: Chest Pain) 30 Days Qty: 30 0RF Rx Instructions: do not exceed 3 doses per episode docusate sodium 100 mg Capsule 100 mg PO BID 30 Days Qty: 60 0RF alum-mag hydroxide-simeth 200-200-20 mg/5 mL Suspension 30 ml PO BID PRN (Reason: GERD) 30 Days Qty: 120 0RF oxybutynin chloride 5 mg Tablet 5 mg PO DAILY 30 Days Qty: 30 0RF divalproex [Depakote Sprinkles] 125 mg Capsule, Delayed Rel Sprinkle 500 mg PO BID 30 Days Qty: 240 0RF levothyroxine 112 mcg Tablet 112 mcg PO DAILY@0630 30 Days Qty: 30 0RF ezetimibe 10 mg Tablet 10 mg PO BEDTIME 30 Days Qty: 30 0RF cyclobenzaprine 5 mg Tablet 5 mg PO TID PRN (Reason: DYSTONIA) 30 Days Qty: 60 0RF lactulose 10 gram/15 mL Solution 10 g PO BID PRN (Reason: Constipation) 30 Days Qty: 1000 0RF cholecalciferol (vitamin D3) 25 mcg (1,000 unit) Tablet 25 mcg PO DAILY 30 Days Qty: 30 0RF pantoprazole [address] For Susp In Packet 40 mg PO BEDTIME 30 Days Qty: 30 0RF deutetrabenazine 36 mg Tablet Extended Release 24 Hr 36 mg PO BEDTIME 30 Days Qty: 30 0RF Changed bisacodyl 10 mg Suppository 10 mg LA DAILY 30 Days Qty: 30 0RF Discontinued benztropine 0.5 mg Tablet 0.5 mg PO BID Invega Sustenna 156 mg/mL Syringe 156 mg IM Q28D lorazepam 0.5 mg Tablet 0.5 mg PO Q6H PRN (Reason: Anxiety) lorazepam 0.5 mg Tablet 0.5 mg PO BID melatonin 3 mg Tablet 6 mg PO BEDTIME pregabalin 75 mg Capsule 75 mg PO BID artificial tears solution Drops 1 drp OPHTHALMIC (EYE) TID Rx Instructions: both eyes Discharge Orders: Discharge Order (Routine); Ordered 08/31/24 Ordered By: Travon Severino Diet: Advance to usual diet Activity on Discharge: As tolerated Stand Alone Forms: Patient Portal Discharge page Print Language: Niuean Care Plan Goals: CARE PLAN GOALS ACHIEVED IN THIS ADMISSION Health Concerns: CONTINUE TREATMENT WITH PRIMARY CARE PHYSICIAN AND OTHER SPECIALISTS Plan of Treatment: INCREASED INVEGA SUSTENNA UP TO 234 MG IM MONTHLY TO TARGET PSYCHOSIS CONTINUE WITH OUTPATIENT PSYCHIATRIC SERVICES Assessment: THE PATIENT IS AN ELDERLY FEMALE WITH A PAST HISTORY OF SCHIZOPHRENIA WHO WAS BROUGHT INTO THE FACILITY FOR EXACERBATION OF PSYCHOSIS IN THE CONTEXT OF A UTI AND DELIRIUM. SHE WAS TREATED WITH ANTIBIOTICS WITH FOR IMPROVEMENT. AT THIS MOMENT THE PATIENT IS READY TO GO BACK TO HER CARE HOME FACILITY, NO SAFETY CONCERNS
== END 2024-08-31 11:03 | disposition skilled nursing facility (03) | DRG 885 ==
PROVIDERS: Clinical Nurse Specialist Psychiatric/Mental Health, Adult; Psychiatry & Neurology Psychiatry; Admitting Provider Psychiatry & Neurology Psychiatry; Visit Provider Psychiatry & Neurology Psychiatry
DX: F20.9 Schizophrenia, unspecified (principal); N39.0 Urinary tract infection, site not specified; F05 Delirium due to known physiological condition; E03.9 Hypothyroidism, unspecified; K59.00 Constipation, unspecified; Z95.0 Presence of cardiac pacemaker; I25.10 Atherosclerotic heart disease of native coronary artery without angina pectoris; Z79.02 Long term (current) use of antithrombotics/antiplatelets; Z79.890 Hormone replacement therapy; Z79.899 Other long term (current) drug therapy
CPT/HCPCS: 36415; 74230; 80048; 80053; 80061; 80164; 82607; 82746; 82947; 83036; 84443; 85025; 87086; 87088; 87186; 92526

== ENCOUNTER 2024-08-21 01:28 | Outpatient (BNV) | payer OTHER, SELFPAY | END 2024-08-24 14:00 | PROVIDERS: Admitting Provider Psychiatry & Neurology Psychiatry; Visit Provider Physician Assistant Surgical | DX: R13.10 Dysphagia, unspecified (principal) | CPT/HCPCS: 74230 ==

== ENCOUNTER → 2024-08-21 01:28 | Outpatient (BNV) | payer OTHER, SELFPAY | PROVIDERS: Admitting Provider Psychiatry & Neurology Psychiatry; Visit Provider Psychiatry & Neurology Psychiatry | DX: F20.9 Schizophrenia, unspecified (principal) | CPT/HCPCS: 90792 ==

== ENCOUNTER → 2024-08-21 01:28 | Outpatient (BNV) | payer OTHER, SELFPAY | PROVIDERS: Admitting Provider Psychiatry & Neurology Psychiatry; Visit Provider Internal Medicine | DX: N39.0 Urinary tract infection, site not specified (principal); F20.9 Schizophrenia, unspecified | CPT/HCPCS: 99222 ==